=== PATIENT | female | born 1935 | race Caucasian/White ===

== ENCOUNTER 2018-08-21 03:35 | Inpatient (IN) | payer OTHER ==
[2018-08-21] MEDS ORDERED: dilTIAZem HCl 25 MG/5 ML VIAL IV ONE (04:24)
[2018-08-21 04:37] LABS: Absolute Lymphocytes (CBC) 1.6 K/uL (0.7-4.9); Absolute Monocytes 0.8 K/uL (0.1-1.3); Absolute Neutrophil 5.6 K/uL (1.8-8.0); Basophils % 0.6 % (0-1.3); Eosinophils % 1.6 % (0-4.4); Hematocrit 39.7 % (36.0-45.0); Lymphocytes % 19.7 % (15.3-44.8); MPV 9.7 fL (7.6-11.3); RBC Red Blood Cell Count 4.45 M/uL (3.86-4.86)
[2018-08-21 04:42] LABS: Protime INR 1.16
--- NOTE | 2018-08-21 04:54 | ER ---
Nurse's Notes [facility] Name: Svetlana Patel Age: 82 yrs Sex: Female : 1935 Arrival Date: 08/21/2018 Time: 03:36 Bed 6 Private MD: Sridhar Alvarez R Diagnosis: Atrial fibrillation and flutter;Paroxysmal atrial fibrillation Presentation: 08/21 03:40 Presenting complaint: Patient states: Chest pain radiating to left arm with cc3 palpitations since Wednesday. Transition of care: patient was not received from another setting of care. Onset of symptoms was August 16, 2018. Risk Assessment: Do you want to hurt yourself or someone else? Patient reports no desire to harm self or others. Initial Sepsis Screen: Does the patient meet any 2 criteria? No. Patient's initial sepsis screen is negative. Does the patient have a suspected source of infection? No. Patient's initial sepsis screen is negative. Care prior to arrival: None. 03:40 Method Of Arrival: Wheelchair cc3 03:40 Acuity: LUCIEN 3 cc3 Triage Assessment: 03:40 General: Appears in no apparent distress. uncomfortable, Behavior is calm, cooperative, cc3 appropriate for age. Pain: Complains of pain in chest. Pain: Pain radiates to left arm. EENT: No signs and/or symptoms were reported regarding the EENT system. Neuro: Level of Consciousness is awake, alert, obeys commands, Oriented to person, place, time, situation, Appropriate for age. Cardiovascular: Reports chest pain, since Wednesday Patient's skin is warm and dry. Respiratory: Airway is patent Respiratory effort is even, unlabored, Respiratory pattern is regular, symmetrical. GI: Abdomen is round non-distended. : No signs and/or symptoms were reported regarding the genitourinary system. Derm: No signs and/or symptoms reported regarding the dermatologic system. Musculoskeletal: Circulation, motion, and sensation intact. Range of motion: intact in all extremities. Historical: - Allergies: 03:40 Multaq; cc3 03:40 Amiodarone; cc3 - Home Meds: 03:40 atorvastatin 40 mg Oral tab 1 tab once daily [Active]; Eliquis 2.5 mg Oral tab 1 tab 2 cc3 times per day [Active]; furosemide 20 mg Oral tab 1 tab 2 times per day [Active]; magnesium oxide 400 mg Oral cap daily [Active]; metoprolol tartrate 25 mg Oral tab 1 tab once daily [Active]; pantoprazole 40 mg Oral TbEC 1 tab once daily [Active]; potassium chloride 20 mEq Oral TbER 1 tab once daily [Active]; 03:40 sotalol 80 mg Oral tab 1 tab 2 times per day [Active]; preservision eye vitamin cc3 [Active]; areds 2 2 a day [Active]; all day allergy 1 a day [Active]; - PMHx: 03:40 Atrial Fib; Hyperlipidemia; Hypertension; cc3 - PSHx: 03:40 triple heart bypass; herniated disc; cc3 - Immunization history:: Adult Immunizations up to date. - Social history:: Smoking status: Patient/guardian denies using tobacco, never smoked. - Ebola Screening: : No symptoms or risks identified at this time. Screenin:40 Abuse screen: Denies threats or abuse. Denies injuries from another. Nutritional cc3 screening: No deficits noted. Tuberculosis screening: No symptoms or risk factors identified. Fall Risk Ambulatory Aid- None/Bed Rest/Nurse Assist (0 pts). Gait- Weak (10 pts.). Mental Status- Oriented to own ability (0 pts). Assessment: 03:40 Pain: Quality of pain is described as aching, Pain began Wednesday. cc3 04:15 Reassessment: Patient appears in no apparent distress at this time. Patient and/or cc3 family updated on plan of care and expected duration. Pain level reassessed. Patient is alert, oriented x 3, equal unlabored respirations, skin warm/dry/pink. 04:39 Reassessment: Repeat ECG done and reviewed by Dr. Cabello. cc3 05:15 Reassessment: Patient appears in no apparent distress at this time. Patient and/or cc3 family updated on plan of care and expected duration. Pain level reassessed. Patient is alert, oriented x 3, equal unlabored respirations, skin warm/dry/pink. Dr. Lance came and assessed the patient bedside and ordered for Lasix 40 mg IV stat in [facility] and carried out. 06:00 Reassessment: Patient appears in no apparent distress at this time. Patient and/or cc3 family updated on plan of care and expected duration. Pain level reassessed. Patient is alert, oriented x 3, equal unlabored respirations, skin warm/dry/pink. 07:20 Reassessment: Patient appears in no apparent distress at this time. No changes from sv previously documented assessment. Patient and/or family updated on plan of care and expected duration. Pain level reassessed. Patient is alert, oriented x 3, equal unlabored respirations, skin warm/dry/pink. 07:52 Reassessment: Patient appears in no apparent distress at this time. No changes from sv previously documented assessment. Patient and/or family updated on plan of care and expected duration. Pain level reassessed. Patient is alert, oriented x 3, equal unlabored respirations, skin warm/dry/pink. Vital Signs: 03:40 BP 128 / 60; Pulse 126; Resp 24 S; Temp 97.6(O); Pulse Ox 98% on R/A; Weight 52.16 kg cc3 (R); Height 5 ft. (152.40 cm) (R); 04:00 BP 112 / 84; Pulse 131; Resp 20 S; Pulse Ox 97% on 2 lpm NC; cc3 04:40 BP 127 / 72; Pulse 110; Resp 22 S; Pulse Ox 99% on 2 lpm NC; cc3 05:00 BP 134 / 77; Pulse 108; Resp 24 S; Pulse Ox 99% on 2 lpm NC; cc3 05:15 BP 132 / 90; Pulse 119; Resp 24 S; Pulse Ox 99% on 2 lpm NC; cc3 06:00 BP 139 / 68; Pulse 130; Resp 23 S; Pulse Ox 99% on 2 lpm NC; cc3 07:00 BP 120 / 75; Pulse 115; Resp 21; Pulse Ox 98% ; sv 07:52 BP 117 / 67; Pulse 112; Resp 20; Pulse Ox 98% on R/A; sv 03:40 Body Mass Index 22.46 (52.16 kg, 152.40 cm) cc3 ED Course: 03:36 Patient arrived in ED. ds1 03:36 Sridhar Alvarez MD is Private Physician. ds1 03:38 Heidi Dozeir is Primary Nurse. cc3 03:39 Arthur Cabello MD is Attending Physician. tw4 03:40 Patient maintains SpO2 saturation greater than 95% on room air. cc3 03:40 Arm band placed on right wrist. cc3 03:40 Patient has correct armband on for positive identification. Placed in gown. Bed in low cc3 position. Call light in reach. Side rails up X2. site monitor on. Pulse ox on. NIBP on. 03:56 Triage completed. cc3 04:05 Inserted saline lock: 20 gauge in right antecubital area, using aseptic technique. cc3 Blood collected. 04:53 Ritu Lance MD is Hospitalizing Provider. tw4 06:00 Report given to VIVIENNE Talley. cc3 07:13 Hospitalizing Provider role handed off by Ritu Lance MD tw4 07:13 Sridhar Alvarez MD is Hospitalizing Provider. tw4 07:31 Sharon Suresh RN is Primary Nurse. sv 07:52 No provider procedures requiring assistance completed. Patient admitted, IV remains in sv place. intact. Administered Medications: 04:20 Drug: Cardizem 10 mg Route: IVP; Site: right antecubital; cc3 04:39 Follow up: Response: No adverse reaction; Cardiac rhythm changed cc3 06:28 Drug: Cardizem 10 mg Route: IVP; Site: right antecubital; aa1 06:40 Follow up: Response: No adverse reaction cc3 Outcome: 04:54 Decision to Hospitalize by Provider. tw4 07:52 Admitted to ICU accompanied by nurse, accompanied by tech, family with patient, via sv stretcher, room 4, on monitor, with chart, Report called to Caity PALAFOX 07:52 Condition: stable 07:52 Instructed on the need for admit. 08:48 Patient left the ED. sv Signatures: Sharon Suresh RN RN Quin hKan RN RN aa1 Carlie Hooker Terrence, MD MD tw4 Heidi Dozier cc3 Corrections: (The following items were deleted from the chart) 04:57 04:05 Cardizem 10 mg IVP in right antecubital cc3 cc3 06:16 05:15 Reassessment: Patient appears in no apparent distress at this time. Patient cc3 and/or family updated on plan of care and expected duration. Pain level reassessed. Patient is alert, oriented x 3, equal unlabored respirations, skin warm/dry/pink. Dr. Lance came and assessed the patient bedside and ordered for Lasix 40 mg IV in [facility] and carried out. cc3
--- NOTE | 2018-08-21 04:55 | EDPHYS ---
Physician Documentation [facility] Name: Svetlana Patel Age: 82 yrs Sex: Female : 1935 Arrival Date: 08/21/2018 Time: 03:36 Bed 6 Private MD: Sridhar Alvarez R ED Physician Arthur Cabello HPI: 08/21 04:13 This 82 yrs old Female presents to ER via Wheelchair with complaints of Chest tw4 Pain, Arm Pain, Cough. 04:13 The patient or guardian reports chest pain that is located primarily in the anterior tw4 chest wall. Onset: last week. The pain does not radiate. Associated signs and symptoms: The patient has no apparent associated signs or symptoms. The chest pain is described as dull. Duration: The patient or guardian reports multiple episodes. Modifying factors: The symptoms are alleviated by nothing. the symptoms are aggravated by nothing. Severity of pain: At its worst the pain was mild in the emergency department the pain is unchanged. Historical: - Allergies: 03:40 Multaq; cc3 03:40 Amiodarone; cc3 - Home Meds: 03:40 atorvastatin 40 mg Oral tab 1 tab once daily [Active]; Eliquis 2.5 mg Oral tab 1 tab 2 cc3 times per day [Active]; furosemide 20 mg Oral tab 1 tab 2 times per day [Active]; magnesium oxide 400 mg Oral cap daily [Active]; metoprolol tartrate 25 mg Oral tab 1 tab once daily [Active]; pantoprazole 40 mg Oral TbEC 1 tab once daily [Active]; potassium chloride 20 mEq Oral TbER 1 tab once daily [Active]; 03:40 sotalol 80 mg Oral tab 1 tab 2 times per day [Active]; preservision eye vitamin cc3 [Active]; areds 2 2 a day [Active]; all day allergy 1 a day [Active]; - PMHx: 03:40 Atrial Fib; Hyperlipidemia; Hypertension; cc3 - PSHx: 03:40 triple heart bypass; herniated disc; cc3 - Immunization history:: Adult Immunizations up to date. - Social history:: Smoking status: Patient/guardian denies using tobacco, never smoked. - Ebola Screening: : No symptoms or risks identified at this time. ROS: 04:13 Constitutional: Negative for fever, chills, and weight loss, Eyes: Negative for injury, tw4 pain, redness, and discharge, Respiratory: Negative for shortness of breath, cough, wheezing, and pleuritic chest pain, Abdomen/GI: Negative for abdominal pain, nausea, vomiting, diarrhea, and constipation, Back: Negative for injury and pain, MS/Extremity: Negative for injury and deformity, Skin: Negative for injury, rash, and discoloration. 04:13 Cardiovascular: Positive for chest pain, palpitations, Negative for edema, orthopnea. Exam: 04:13 Constitutional: This is a well developed, well nourished patient who is awake, alert, tw4 and in no acute distress. Head/Face: Normocephalic, atraumatic. Chest/axilla: Normal chest wall appearance and motion. Nontender with no deformity. No lesions are appreciated. Respiratory: Lungs have equal breath sounds bilaterally, clear to auscultation and percussion. No rales, rhonchi or wheezes noted. No increased work of breathing, no retractions or nasal flaring. Abdomen/GI: Soft, non-tender, with normal bowel sounds. No distension or tympany. No guarding or rebound. No evidence of tenderness throughout. Back: No spinal tenderness. No costovertebral tenderness. Full range of motion. Skin: Warm, dry with normal turgor. Normal color with no rashes, no lesions, and no evidence of cellulitis. MS/ Extremity: Pulses equal, no cyanosis. Neurovascular intact. Full, normal range of motion. Neuro: Awake and alert, GCS 15, oriented to person, place, time, and situation. Cranial nerves II-XII grossly intact. Motor strength 5/5 in all extremities. Sensory grossly intact. Cerebellar exam normal. Normal gait. 04:13 Cardiovascular: Rate: tachycardic, actual rate is 124 bpm, Rhythm: irregularly irregular, Pulses: no pulse deficits are appreciated, Heart sounds: Vital Signs: 03:40 BP 128 / 60; Pulse 126; Resp 24 S; Temp 97.6(O); Pulse Ox 98% on R/A; Weight 52.16 kg cc3 (R); Height 5 ft. (152.40 cm) (R); 04:00 BP 112 / 84; Pulse 131; Resp 20 S; Pulse Ox 97% on 2 lpm NC; cc3 04:40 BP 127 / 72; Pulse 110; Resp 22 S; Pulse Ox 99% on 2 lpm NC; cc3 05:00 BP 134 / 77; Pulse 108; Resp 24 S; Pulse Ox 99% on 2 lpm NC; cc3 05:15 BP 132 / 90; Pulse 119; Resp 24 S; Pulse Ox 99% on 2 lpm NC; cc3 06:00 BP 139 / 68; Pulse 130; Resp 23 S; Pulse Ox 99% on 2 lpm NC; cc3 07:00 BP 120 / 75; Pulse 115; Resp 21; Pulse Ox 98% ; sv 07:52 BP 117 / 67; Pulse 112; Resp 20; Pulse Ox 98% on R/A; sv 03:40 Body Mass Index 22.46 (52.16 kg, 152.40 cm) cc3 MDM: 03:39 Patient medically screened. tw4 05:18 Differential diagnosis: acute myocardial infarction, acute pericarditis, pulmonary tw4 embolus, thoracic aortic disection. Data reviewed: vital signs, nurses notes. Data interpreted: Pulse oximetry: Interpretation: normal. Counseling: I had a detailed discussion with the patient and/or guardian regarding: the historical points, exam findings, and any diagnostic results supporting the discharge/admit diagnosis, radiology results, the need for further work-up and treatment in the hospital. 05:25 Physician consultation: Sridhar Alvarez MD was contacted at 05:28, regarding admission, and 4 will see patient in inpatient room, would like consultation with Dr. Dr Breaux. 08/21 03:50 Order name: Basic Metabolic Panel 08/21 03:50 Order name: CBC with Diff 08/21 03:50 Order name: LFT's 08/21 03:50 Order name: Magnesium 08/21 03:50 Order name: NT PRO-BNP 08/21 03:50 Order name: PT-INR 08/21 03:50 Order name: Troponin (emerg Dept Use Only) 08/21 03:50 Order name: XRAY Chest (1 view) 08/21 03:50 Order name: EKG; Complete Time: 03:51 08/21 03:50 Order name: Cardiac monitoring; Complete Time: 03:53 08/21 03:50 Order name: EKG - Nurse/Tech; Complete Time: 03:53 tw4 08/21 03:51 Order name: Basic Metabolic Panel; Complete Time: 06:20 EDGA 08/21 03:50 Order name: IV Saline Lock; Complete Time: 04:09 tw4 08/21 03:50 Order name: Labs collected and sent; Complete Time: 04:29 tw4 08/21 03:50 Order name: O2 Per Protocol; Complete Time: 03:53 tw4 08/21 03:50 Order name: O2 Sat Monitoring; Complete Time: :53 tw4 EC:13 Rate is 134 beats/min. Rhythm is irregularly irregular, A fib. QRS [place] is Normal. NE tw4 interval is normal. QRS interval is normal. QT interval is normal. No Q waves. T waves are Normal. No ST changes noted. Clinical impression: Atrial Fibrillation. Interpreted by me. Reviewed by me. Administered Medications: 04:20 Drug: Cardizem 10 mg Route: IVP; Site: right antecubital; cc3 04:39 Follow up: Response: No adverse reaction; Cardiac rhythm changed cc3 06:28 Drug: Cardizem 10 mg Route: IVP; Site: right antecubital; aa1 06:40 Follow up: Response: No adverse reaction cc3 Disposition: 08/21/18 04:54 Hospitalization ordered by Sridhar Alvarez for Inpatient Admission. Preliminary diagnosis are Atrial fibrillation and flutter, Paroxysmal atrial fibrillation. - Bed requested for Intensive Care Unit. - Status is Inpatient Admission. sv - Condition is Stable. - Problem is new. - Symptoms have improved. UTI on Admission? No Signatures: Dispatcher [employer] [facility] Sharon Suresh RN RN Quin Khan RN RN aa1 Carolina Pittman RN RN bb Arthur Cabello MD MD tw4 Heidi Dozier cc3 Corrections: (The following items were deleted from the chart) 05:30 05:18 Physician consultation: Ritu Lance MD regarding admission, to the ICU, tw4 patient's condition, need to come to ED to see patient, and will see patient in ED, in inpatient room, tw4 07:13 04:54 Hospitalization Ordered by Ritu Lance MD for Inpatient Admission. Preliminary tw4 diagnosis is Atrial fibrillation and flutter; Paroxysmal atrial fibrillation. Bed requested for Telemetry/MedSurg (Inpatient). Status is Inpatient Admission. Condition is Stable. Problem is new. Symptoms have improved. UTI on Admission? No. tw4 07:14 07:13 08/21/2018 04:54 Hospitalization Ordered by Sridhar Alvarez MD for Inpatient bb Admission. Preliminary diagnosis is Atrial fibrillation and flutter; Paroxysmal atrial fibrillation. Bed requested for Intensive Care Unit. Status is Inpatient Admission. Condition is Stable. Problem is new. Symptoms have improved. UTI on Admission? No. tw4 08:48 07:14 08/21/2018 04:54 Hospitalization Ordered by Sridhar Alvarez MD for Inpatient sv Admission. Preliminary diagnosis is Atrial fibrillation and flutter; Paroxysmal atrial fibrillation. Bed requested for Intensive Care Unit. Status is Inpatient Admission. Condition is Stable. Problem is new. Symptoms have improved. UTI on Admission? No. bb
[2018-08-21 05:05] LABS: Albumin 3.1 g/dL (3.4-5.0); Bilirubin Direct 0.1 mg/dL (0-0.2); Bilirubin Total 0.5 mg/dL (0.2-1.0); Magnesium 1.8 mg/dL (1.8-2.4); Protein, Total 6.8 g/dL (6.4-8.2); Troponin (Emerg Dept Use Only) 0.02 ng/mL (0.0-0.045)
[2018-08-21] MEDS ORDERED: FUROSEMIDE 40 MG/4 ML VIAL IV ONE (05:13)
[2018-08-21] MEDS ORDERED: IPRATROPIUM BROM 0.5MG/2.5ML NEB PRN (05:57)
[2018-08-21] MEDS ORDERED: ALBUTEROL 2.5 MG/3 ML NEB SOL NEB PRN (05:57)
[2018-08-21] MEDS ORDERED: ACETAMINOPHEN 500 MG TAB PO PRN (05:57)
[2018-08-21] MEDS ORDERED: FUROSEMIDE 20 MG/ 2ML VIAL IV SCH (09:00)
--- NOTE | 2018-08-21 10:09 | RAD REPORT ---
EXAM DESCRIPTION: RAD - Chest Single View - 08/21/2018 8:19 am CLINICAL HISTORY: CHEST PAIN Chest pain. COMPARISON: Chest Single View dated 07/19/2016; CHEST SINGLE VIEW dated 07/08/2015 FINDINGS: Portable technique limits examination quality. The lungs are mildly emphysematous but grossly clear. Changes of a prior CABG are noted. No displaced fractures. IMPRESSION: No acute intrathoracic process suspected.
[2018-08-21 11:06] VITALS: BMI 22.4
[2018-08-21] MEDS: APIXABAN 2.5 MG TABLET PO SCH ×2 (11:39→21:14)
[2018-08-21] MEDS ORDERED: SOTALOL HCL 80 MG TAB PO ONE (12:00)
--- NOTE | 2018-08-21 15:03 | CON ---
History Of Present Illness: Mrs. Patel is 82. For more than a week, she has been having intermitte nt spells of chest pain and heart racing. She did not seek any medical attention until she came to [facility] emergency room yesterday. She was in sinus rhythm when she first came in. Now she is in atrial f ib and has reproduced her spell. As an outpatient, she had a nuclear stress test that did not show i schemia. Three years ago in July 2015, she underwent cardiac catheterization and then had perez ry bypass surgery, that was by Dr. Sabillon in [place]. She has been in atrial fib intermittently since [facility], but not nearly as much. She has been on Eliquis 2.5 b.i.d. and Betapace 80 b.i.d. without havin g that very much atrial fibrillation until the last few weeks. Medications: Outpatient medications have been atorvastatin, cetirizine, apixaban, sotalol. Allergies: SHE HAS DRUG INTOLERANCE TO AMIODARONE AND TO DRONEDARONE OR MULTAQ. Physical Examination: General: She is alert, oriented, pleasant, 5 feet tall, 115 pounds. HEENT: Normal. Lungs: Clear. Cardiac: Within normal limits except for that it is irregularly irregular and going about 110. Sinc e she has been here in the hospital, she has missed at least 1 dose of Betapace, it simply was not or dered by the admitting physician. The rest of her physical exam was normal. Assessment/plan: I think we ought to try a higher dose of Betapace. If this fails to control her at rial fibrillation, she will need an electrophysiology evaluation and most likely an ablation, although dofetilide is a possibility. ARIEL/ELLEN Voice ID: [id number] Report ID: [id number]
[2018-08-21 16:43] LABS: Urine Appearance CLEAR; Urine Bilirubin NEGATIVE (NEG); Urine Blood 2+ (NEG); Urine Color YELLOW; Urine Glucose NEGATIVE (NEG); Urine Protein 1+ (NEG); Urine Specific Gravity <=1.005 (1.005-1.030); Urine Urobilinogen 0.2 mg/dL (0.2-1.0); Urine pH 6.5 (5.0-7.0)
[2018-08-21 17:00] LABS: Urine Microscopic Reflex ORDER UMIC
[2018-08-21 17:02] LABS: Urine Bacteria <20 /HPF (<20)
[2018-08-21 17:03] LABS: Urine Culture Reflex Order NOT NEEDED
--- NOTE | 2018-08-21 17:03 | HP ---
Date of Admission: 08/21/2018 Chief Complaint: 1.Chest pain radiating to the left arm. 2.Palpitations. History Of Present Illness: An 82-year-old female, who is known to have history of coronary artery d iscarlose, having had coronary artery bypass surgery, was being treated as an outpatient for atrial fibr illation. The patient, however, developed chest pain and palpitations. She was brought to the ER. She had an increased ventricular response from atrial fibrillation. The patient is admitted. Past Medical History: Positive for atrial fibrillation, hypertension, coronary artery disease, hyper lipidemia. Past Surgical History: Positive for triple bypass surgery. Personal History: Nonsmoker. Home Medicines: Please refer to the chart. Review of Systems: No fever, chills, rigors. Physical Examination: General: Revealed an 82-year-old female, very alert for her age. HEENT: Negative. Neck: Supple. JVD negative. Chest: Clear. Heart: Irregularity noted. Tachycardia present. Abdomen: Soft. Extremities: No edema. Laboratory Data: Done in the emergency room showed normal white count. Chem profile; BUN 19. Tropo milyl normal. BNP 6668. Assessment: 1.Atrial fibrillation with rapid ventricular response. 2.Status post coronary artery bypass surgery. 3.Hypertension. 4.Hyperlipidemia. Plan: The patient is being seen by Cardiology Service. The patient is already on anticoagulation, w hich will be continued. MARY/ELLEN Voice ID: [id number]
[2018-08-21] MEDS: SOTALOL HCL 80 MG TAB PO SCH (17:52)
--- NOTE | 2018-08-21 20:18 | EKG ---
Test Date: 2018-08-21 Test Time: 04:39:12 Interior Systems Carpenter: YU MEASUREMENT RESULTS: Intervals: Rate: 111 MD: QRSD: 68 QT: 336 QTc: 456 [place]: P: MD: QRS: -25 T: -2 INTERPRETIVE STATEMENTS: Atrial fibrillation with rapid ventricular response Inferior infarct, age undetermined Abnormal ECG Compared to ECG 08/21/2018 03:46:22 Myocardial infarct finding now present Atrial flutter no longer present ST (T wave) deviation no longer present Electronically Signed On 08-21-18 20:17:56 CDT by Jaylon Breaux
--- NOTE | 2018-08-21 20:19 | EKG ---
Test Date: 2018-08-21 Test Time: 03:46:22 Coach Mechanic: YU MEASUREMENT RESULTS: Intervals: Rate: 134 ND: QRSD: 66 QT: 276 QTc: 412 [place]: P: ND: QRS: -3 T: 73 INTERPRETIVE STATEMENTS: Atrial flutter with variable AV block Nonspecific ST abnormality Abnormal ECG Compared to ECG 07/21/2016 13:18:52 ST (T wave) deviation now present Sinus bradycardia no longer present Myocardial infarct finding no longer present Electronically Signed On 08-21-18 20:18:04 CDT by Jaylon Breaux
[2018-08-21] MEDS ORDERED: ATORVASTATIN 40 MG TAB PO SCH (21:00)
[2018-08-21] MEDS: ATORVASTATIN 40 MG TAB PO SCH (21:14)
[2018-08-22 05:19] LABS: Absolute Lymphocytes (CBC) 1.7 K/uL (0.7-4.9); Absolute Neutrophil 4.8 K/uL (1.8-8.0); Eosinophils % 1.6 % (0-4.4); Hematocrit 36.6 % (36.0-45.0); Lymphocytes % 22.7 % (15.3-44.8); MPV 9.2 fL (7.6-11.3); Monocytes % 12.5 % (3.3-12.3)
[2018-08-22 05:49] LABS: Potassium 3.7 mmol/L (3.5-5.1)
[2018-08-22] MEDS: SOTALOL HCL 80 MG TAB PO SCH ×2 (07:00→17:29)
[2018-08-22] MEDS ORDERED: MIDAZOLAM HCL 2 MG/2 ML INJ ONE ×2 (07:28→07:35)
[2018-08-22] MEDS ORDERED: FLUMAZENIL 0.1 MG/ML (5 mL VIAL) IV ONE (07:32)
[2018-08-22] MEDS ORDERED: HOME MED 1 EA UNK (Cetirizine Hcl [Cetirizine Hcl] 10 MG) PO SCH (09:00)
[2018-08-22] MEDS: APIXABAN 2.5 MG TABLET PO SCH ×2 (09:31→21:31)
[2018-08-22] MEDS: CETIRIZINE HCL 5 MG TABLET PO SCH (09:31)
--- NOTE | 2018-08-22 18:16 | OP ---
Surgeon: Jaylon Breaux MD Procedure: The patient had a cardioversion. Indication: Persistent atrial fibrillation. Procedure In Detail: The patient was fasting. She received several doses of Betapace 120 every 12 h ours. She had been on Eliquis 2.5 every 12 hours continuously. Anterior-posterior paddles were appl ied to her chest. She was shocked with a single shock 200 joules. She emerged from this rhythm with multifocal atrial tachycardia, few PVCs, some sinus pauses and finally sinus rhythm. She seems to b e stable. She was sedated with 5 mg of Versed. The shock was 200 joules, synchronized to the QRS as 1 shock. No complications. ARIEL/ELLEN Voice ID: [id number] Report ID: [id number]
[2018-08-22] MEDS: ATORVASTATIN 40 MG TAB PO SCH (21:32)
[2018-08-23] MEDS: SOTALOL HCL 80 MG TAB PO SCH (06:23)
[2018-08-23] MEDS: APIXABAN 2.5 MG TABLET PO SCH (08:33)
[2018-08-23] MEDS: CETIRIZINE HCL 5 MG TABLET PO SCH (08:34)
[2018-08-23 13:09] VITALS: BP 136/58; TEMP 97.7
[2018-08-23 13:10] VITALS: O2SAT 93
== END 2018-08-23 14:46 | disposition home or self-care (01) | DRG 310 ==
LOC: ER 03:35 → ERHOLD 05:22 → 3RD-ICU 08:03 → 4TH 08-22 13:25
PROVIDERS: ADMIT Internal Medicine; ATTEND Internal Medicine
PROC: 5A2204Z Restoration of Cardiac Rhythm, Single (ICD-10-PCS; principal; 2018-08-22)
DX: I48.2 Chronic atrial fibrillation (principal); R07.9 Chest pain, unspecified; R00.2 Palpitations; I25.10 Atherosclerotic heart disease of native coronary artery without angina pectoris; Z95.1 Presence of aortocoronary bypass graft; E78.5 Hyperlipidemia, unspecified
CPT/HCPCS: 36415; 71045; 80048; 80076; 81003; 81015; 83735; 83880; 84484; 85025; 85610; 87086; 87088; 93005; 96374; 99285; J1940; J2250

== ENCOUNTER 2018-10-07 15:00 | Day surgery (SDC) | payer OTHER ==
[2018-10-07 13:12] LABS: Absolute Lymphocytes (CBC) 1.7 K/uL (0.7-4.9); Absolute Monocytes 0.9 K/uL (0.1-1.3); Absolute Neutrophil 5.1 K/uL (1.8-8.0); Basophils % 0.9 % (0-1.3); Eosinophils % 0.2 % (0-4.4); Hematocrit 36.7 % (36.0-45.0); Lymphocytes % 22.1 % (15.3-44.8); MPV 8.8 fL (7.6-11.3); Monocytes % 11.2 % (3.3-12.3); RBC Red Blood Cell Count 4.19 M/uL (3.86-4.86)
[2018-10-07 13:14] LABS: Protime INR 1.33
[2018-10-07 13:25] LABS: Potassium 4.2 mmol/L (3.5-5.1)
[~2018-10-07 15:00] MED LIST: NA CHLORIDE 0.9% 500 ML ONE
--- OUTSIDE RECORDS SUMMARY | 2018-10-07 15:02 | XMS REPORT | Clinical Summary ---
:1935 Author Organization [facility] Address [address] [place] [id number] Care Team Providers Name Role Phone Sridhar Merritt MD Primary Care Provider Allergies No Known Allergies Medications Medication Sig Dispensed Refills Start Date End Date Status atorvastatin Take 40 mg by 0 Active (LIPITOR) 40 MG mouth daily. tablet apixaban (ELIQUIS) Take 2.5 mg 0 Active 2.5 mg tablet by mouth 2 (two) times a day. cetirizine Take 10 mg by 0 Active (ZyrTEC) 10 MG mouth daily. tablet dofetilide Take 1 180 capsule 0 10/05/2018 01/03/2019 Active (TIKOSYN) 250 MCG capsule (250 capsule mcg total) by mouth every 12 (twelve) hours for 90 days. metoprolol Take 25 mg by 0 10/05/2018 Discontinued succinate XL mouth daily. (TOPROL-XL) 25 mg 24 hr tablet Active Problems Problem Noted Date Afib 10/03/2018 Encounters Date Type Specialty Care Team Description 10/03/2018 - Hospital Encounter General Internal Felipe Bryan 10/05/2018 Medicine MD Gómez 10/03/2018 Lab Lab Felipe Bryan Atrial fibrillation, unspecified type (HCC) (Primary Dx); MD Gómez Other skilled nursing (current) drug therapy after 10/06/2017 Social History Tobacco Use Types Packs/Day Years Used Date Never Smoker Smokeless Tobacco: Never Used Alcohol Use Drinks/Week oz/Week Comments No Alcohol Habits Answer Date Recorded How often do you have a drink containing alcohol? Never 10/03/2018 How many drinks containing alcohol do you have on a typical Not asked day when you are drinking? How often do you have six or more drinks on one occasion? Not asked Sex Assigned at Date Recorded Not on file Job Start Date Occupation Industry Not on file Not on file Not on file Travel History Travel Start Travel End No recent travel history available. Last Filed Vital Signs Vital Sign Reading Time Taken Blood Pressure 135/56 10/05/2018 11:53 AM CDT Pulse 54 10/05/2018 11:53 AM CDT Temperature 36.7 C (98 F) 10/05/2018 11:53 AM CDT Respiratory Rate 18 10/05/2018 11:53 AM CDT Oxygen Saturation 95% 10/05/2018 11:53 AM CDT Inhaled Oxygen Concentration - - Weight 55.4 kg (122 lb 2.2 oz) 10/05/2018 5:05 AM CDT Height - - Body Mass Index - - Plan of Treatment Health Maintenance Due Date Last Done Comments SHINGLES VACCINES (#1) 12/31/1983 65+ PNEUMOCOCCAL VACCINE (1 of 2 - PCV13) 1998 PNEUMOCOCCAL POLYSACCHARIDE VACCINE AGE 65 AND OVER 1998 INFLUENZA VACCINE 12/29/2018 Procedures Procedure Name Priority Date/Time Associated Comments Diagnosis ESTIMATED GFR Routine 10/05/2018 5:17 Results for this AM CDT procedure are in the results section. MAGNESIUM LEVEL Routine 10/05/2018 5:17 Results for this AM CDT procedure are in the results section. BASIC METABOLIC PANEL Routine 10/05/2018 5:17 Results for this AM CDT procedure are in the results section. ECG 12-LEAD Routine 10/05/2018 12:01 Results for this AM CDT procedure are in the results section. ESTIMATED GFR Routine 10/04/2018 6:19 Results for this AM CDT procedure are in the results section. MAGNESIUM LEVEL Routine 10/04/2018 6:19 Results for this AM CDT procedure are in the results section. BASIC METABOLIC PANEL Routine 10/04/2018 6:19 Results for this AM CDT procedure are in the results section. ECG 12-LEAD STAT 10/04/2018 1:18 Results for this AM CDT procedure are in the results section. POC GLUCOSE Routine 10/04/2018 12:41 Results for this AM CDT procedure are in the results section. ECG 12-LEAD Routine 10/03/2018 2:04 Results for this PM CDT procedure are in the results section. ECG 12-LEAD STAT 10/03/2018 9:18 Results for this AM CDT procedure are in the results section. ESTIMATED GFR Routine 10/03/2018 6:13 Results for this AM CDT procedure are in the results section. MAGNESIUM LEVEL Routine 10/03/2018 6:13 Atrial Results for this AM CDT fibrillation, procedure are in unspecified type the results (HCC) section. Other skilled nursing (current) drug therapy COMPREHENSIVE METABOLIC Routine 10/03/2018 6:13 Atrial Results for this PANEL AM CDT fibrillation, procedure are in unspecified type the results (HCC) section. 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 Other skilled nursing (current) drug therapy HC COMPLETE BLD COUNT Routine 10/03/2018 6:13 Atrial Results for this W/AUTO DIFF AM CDT fibrillation, procedure are in unspecified type the results (HCC) section. Other skilled nursing (current) drug therapy after 10/06/2017 Results Estimated GFR (10/05/2018 5:17 AM CDT)Only the most recent of3 resultswithin the time period is included. Estimated GFR 75 mL/min/1.73 m2 [facility] Comment: HOSPITAL CatergoryUnitsInterpretation G1 >=90 Normal or high G2 60-89Mildly decreased P2h90-59Zecrhu to moderately decreased C2y07-64Ngjqdflzch to severely decreased G4 15-29Severely decreased G5 <15Kidney failure The eGFR was calculated using the Chronic Kidney Disease Epidemiology Collaboration (CKD-EPI) equation. Interpretation is based on recommendations of the National Kidney Foundation-Kidney Disease Outcomes Quality Initiative (NKF-KDOQI) published in 2014. Specimen Plasma specimen Performing Organization Address City/State/Zipcode Phone Number [facility] DEPARTMENT OF PATHOLOGY AND [address] [place] [address] [facility] [place] [id number] [place] [address] Magnesium level (10/05/2018 5:17 AM CDT)Only the most recent of3 resultswithin the time period is included. Magnesium 1.8 1.6 - 2.4 mg/dL [facility] Specimen Plasma specimen Performing Organization Address City/[facility] Phone Number [facility] DEPARTMENT OF PATHOLOGY AND [address] [place] [id number] [place] [phone] Basic metabolic panel (10/05/2018 5:17 AM CDT)Only the most recent of2 resultswithin the time period is included. Sodium 142 135 - 148 mEq/L [facility] Potassium 4.0 3.5 - 5.0 mEq/L [facility] Chloride 102 98 - 112 mEq/L [facility] CO2 28 24 - 31 mEq/L [facility] Anion gap 12@ANIO 7 - 15 mEq/L [facility] BUN 19 8 - 23 mg/dL [facility] Creatinine 0.73 0.50 - 0.90 mg/dL [facility] Glucose 103 (H) 65 - 99 mg/dL [facility] Calcium 8.5 (L) 8.8 - 10.2 mg/dL [facility] Specimen Plasma specimen Performing Organization Address City/[facility] Phone Number [facility] DEPARTMENT OF PATHOLOGY AND [address] [place] [id number] ECG 12 lead (10/05/2018 12:01 AM CDT)Only the most recent of4 resultswithin the time period is included. Ventricular rate 59 [facility]USE Atrial rate 59 [facility] MUSE OR interval 166 [facility] MUSE QRSD interval 74 [facility] QT interval 494 [facility] QTC interval 489 [facility] MUSE P axis 1 66 [facility]USE QRS axis 1 30 [facility] MUSE T wave axis 61 [facility] MUSE EKG impression Sinus bradycardia with occasional and consecutive premature ventricular complexes-Abnormal ECG-In automated comparison with ECG of 2018 14:20,-premature atrial complexes are no longer present-Marcelle [facility] MUSE ctronically Signed By Monico Nogueira ([id number]) on 10/05/2018 8:12:40 AM Narrative Performed At Performing Organization Address City/[facility]/Zipcode Phone Number [facility] MUSE [address] [place] [address] POC glucose (10/04/2018 12:41 AM CDT) POC glucose 131 (H) 65 - 99 mg/dL [facility] Comment: [facility] Notified RN Meter ID: [id number] Shoe Salesperson: Villegas Performing Organization Address City/State/[facility] Phone Number [facility] DEPARTMENT OF PATHOLOGY AND [address] [place] [address] Partial thromboplastin time, activated (10/03/2018 6:13 AM CDT) PTT 29.8 23.0 - 36.0 sec [facility] Comment: PTT therapeutic range for unfractionated heparin is 61.0-112.0 seconds which corresponds to Anti-Xa 0.3-0.7 U/ml. Specimen Blood Performing Organization Address City/[facility] Phone Number [facility] DEPARTMENT OF PATHOLOGY AND [address] [place] [phone] Prothrombin time with INR (10/03/2018 6:13 AM CDT) Prothrombin time 15.2 (H) 11.5 - 14.5 sec [facility] INR 1.2 [facility] Comment: HOSPITAL The International Normalized Ratio (INR) is a therapeutic monitoring tool for patients who are stable on oral anticoagulant therapy. An INR of 2.0-3.0 is suggested for deep vein thrombosis/pulmonary embolism. Specimen Blood Performing Organization Address City/[facility]y Phone Number [facility] DEPARTMENT OF PATHOLOGY AND [address] [place] [address] CBC with platelet and differential (10/03/2018 6:13 AM CDT) WBC 7.53 4.50 - 11.00 k/uL [facility] RBC 4.30 4.20 - 5.50 m/uL [facility] HGB 12.3 12.0 - 16.0 g/dL [facility] HCT 40.0 37.0 - 47.0 % [facility] MCV 93.0 82.0 - 100.0 fL [facility] MCH 28.6 27.0 - 34.0 pg [facility] MCHC 30.8 (L) 31.0 - 37.0 g/dL [facility] RDW - SD 49.6 37.0 - 55.0 fL [facility] MPV 11.0 8.8 - 13.2 fL [facility] Platelet count 214 150 - 400 k/uL [facility] Nucleated RBC 0.00 /100 WBC [facility] Neutrophils 68.1 39.0 - 69.0 % [facility] Lymphocytes 18.3 (L) 25.0 - 45.0 % [facility] Monocytes 12.0 (H) 0.0 - 10.0 % [facility] Eosinophils 0.9 0.0 - 5.0 % [facility] Basophils 0.4 0.0 - 1.0 % [facility] Immature granulocytes 0.3Comment: "Immature 0.0 - 1.0 % [facility]" [facility] (promyelocytes, myelocytes, metamyelocytes) Specimen Blood Performing Organization Address City/State/Zipcode Phone Number [facility] DEPARTMENT OF PATHOLOGY AND [address] [place] [address] GENOMIC MEDICINE [address] [address] Comprehensive metabolic panel (10/03/2018 6:13 AM CDT) Sodium 139 135 - 148 mEq/L [facility] Potassium 4.0 3.5 - 5.0 mEq/L [facility] Chloride 101 98 - 112 mEq/L [facility] CO2 27 24 - 31 mEq/L [facility] Anion gap 11@ANIO 7 - 15 mEq/L [facility] BUN 22 8 - 23 mg/dL [facility] Creatinine 0.82 0.50 - 0.90 mg/dL [facility] Glucose 123 (H) 65 - 99 mg/dL [facility] Calcium 9.0 8.8 - 10.2 mg/dL [facility] Protein 6.3 6.3 - 8.3 g/dL [facility] Comment: HOSPITAL 4.6-7.0 g/dL 1 week 4.4-7.6 g/dL 7 months-1year5.1-7.3 g/dL 1-2 years5.6-7.5 g/dL >3 years6.0-8.0 g/dL 18-150 6.3-8.3 g/dL Albumin 3.0 (L) 3.5 - 5.0 g/dL [facility] A/G ratio 0.9 0.7 - 3.8 [facility] Alkaline phosphatase 101 35 - 104 U/L [facility] AST 33 10 - 35 U/L [facility] ALT 34 5 - 50 U/L [facility] Total bilirubin 0.4 0.0 - 1.2 mg/dL [facility] Specimen Plasma specimen Performing Organization Address City/State/Zipcode Phone Number [facility] DEPARTMENT OF PATHOLOGY AND [address] [place] [address] GENOMIC MEDICINE [address] [address] after 10/06/2017 Insurance Payer Benefit Plan / Group Subscriber ID Type Phone Address [employer]ARE [employer] MED[employer]ARE PPO/PFFS/ERS MCR xxxxxxxxx PPO ([id number] [place] [address] Advance Directives Patient has advance care planning documents on file. For more information, please contact:[address] [address]
[2018-10-07] MEDS ORDERED: ATROPINE SULF 1 MG/10 ML SYR IV ONE (15:07)
[2018-10-07] MEDS ORDERED: MIDAZOLAM HCL 5 MG/5 ML INJ ONE (15:07)
[2018-10-07 16:39] VITALS: BP 161/70; O2SAT 96
[2018-10-07 16:59] VITALS: TEMP 97.2
--- NOTE | 2018-10-08 00:45 | OP ---
Date of Procedure: 10/07/2018 Surgeon: Ash Colon MD Procedure: Direct current cardioversion. Indication: Atrial fibrillation. Details: Ms. Patel is an 82-year-old white woman who has failed multiple attempts at cardioverting her heart with medication. She has tried beta blockers, Bystolic, Betapace. She had tried Multaq. Finally she is on Tikosyn, converted to normal rhythm for a day. After 3 days of in-hospital initiat ion, went back into atrial fibrillation. Came to see me at the office today and was sent to the [facility] for a cardioversion. She received 3 mg of Versed for IV sedation. She received one shock of 20 0 joules. She converted to sinus rhythm with multiple PVCs, PACs, occasional couplets but sinus rhyt hm nevertheless. Complications: None. Blood Loss: None. Total Conscious Sedation: 30 minutes. Final Diagnosis: Status post successful atrial fibrillation to sinus rhythm. We will continue Jeffreys yn, continue Eliquis. She will see at the end of September. The case was discussed with he r daughter and with . Operators: Ash Colon M.D. and Dr. Mcclendon Guru. SHARRI/ELLEN Voice ID: [id number] Report ID: [id number]
--- NOTE | 2018-10-08 09:22 | EKG ---
Test Date: 2018-10-07 Test Time: 15:13:20 Electric Motorman: ARIANA MEASUREMENT RESULTS: Intervals: Rate: 100 WA: 152 QRSD: 60 QT: 404 QTc: 521 [place]: P: 98 WA: 152 QRS: -20 T: 27 INTERPRETIVE STATEMENTS: Sinus rhythm with fusion complexes and premature atrial complexes with aberrant conduction Inferior infarct, age undetermined Prolonged QT Abnormal ECG Compared to ECG 08/21/2018 04:39:12 Atrial premature complex(es) now present Fusion complex(es) now present Aberrant conduction of supraventricular beat(s) now present Prolonged QT interval now present Atrial fibrillation no longer present Myocardial infarct finding still present Electronically Signed On 10-08-18 09:21:03 CDT by Ash Colon
== END 2018-10-07 16:50 | disposition home or self-care (01) ==
LOC: CCL 15:00
DX: I48.91 Unspecified atrial fibrillation (principal); I25.10 Atherosclerotic heart disease of native coronary artery without angina pectoris; I10 Essential (primary) hypertension; K21.9 Gastro-esophageal reflux disease without esophagitis; I65.23 Occlusion and stenosis of bilateral carotid arteries; E78.6 Lipoprotein deficiency; Z79.01 Long term (current) use of anticoagulants; Z79.899 Other long term (current) drug therapy; Z95.1 Presence of aortocoronary bypass graft
CPT/HCPCS: 93005; 85025; 80048; 36415; 85610; 85730; 92960; J2250

== ENCOUNTER 2018-11-16 07:36 | Emergency (ER) | payer OTHER ==
--- OUTSIDE RECORDS SUMMARY | 2018-11-16 07:38 | XMS REPORT | Clinical Summary ---
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 Other alf (current) drug therapy COMPREHENSIVE METABOLIC Routine 10/03/2018 6:13 Atrial Results for this PANEL AM CDT fibrillation, procedure are in unspecified type the results (HCC) section. 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 Other alf (current) drug therapy PROTHROMBIN TIME WITH Routine 10/03/2018 6:13 Atrial Results for this INR AM CDT fibrillation, procedure are in unspecified type the results (HCC) section. Other alf (current) drug therapy HC COMPLETE BLD COUNT Routine 10/03/2018 6:13 Atrial Results for this W/AUTO DIFF AM CDT fibrillation, procedure are in unspecified type the results (HCC) section. Other alf (current) drug therapy after 11/15/2017 Results Estimated GFR (10/05/2018 5:17 AM CDT)Only the most recent of3 resultswithin the time period is included. Estimated GFR 75 mL/min/1.73 [facility] Comment: HOSPITAL CatergoryUnitsInterpretation G1 >=90 Normal or high G2 60-89Mildly decreased [id number] to moderately decreased [id number] to severely decreased G4 15-29Severely decreased G5 <15Kidney failure The eGFR was calculated using the Chronic Kidney Disease Epidemiology Collaboration (CKD-EPI) equation. Interpretation is based on recommendations of the National Kidney Foundation-Kidney Disease Outcomes Quality Initiative (NKF-KDOQI) published in 2014. Specimen Plasma specimen Performing Organization Address City/State/Zipcode Phone Number [facility] DEPARTMENT OF PATHOLOGY AND [address] [place] [address] [address] [address] Magnesium level (10/05/2018 5:17 AM CDT)Only the most recent of3 resultswithin the time period is included. Magnesium 1.8 1.6 - 2.4 mg/dL [facility] Specimen Plasma specimen Performing Organization Address City/State/Zipcode Phone Number [facility] DEPARTMENT OF PATHOLOGY AND [address] [place] [phone] [address] Basic metabolic panel (10/05/2018 5:17 AM CDT)Only the most recent of2 resultswithin the time period is included. [facility] Sodium 142 135 - 148 mEq/L [facility] Potassium 4.0 3.5 - 5.0 mEq/L [facility] Chloride 102 98 - 112 mEq/L [facility] CO2 28 24 - 31 mEq/L [facility] Anion gap 12@ANIO 7 - 15 mEq/L [facility] BUN 19 8 - 23 mg/dL [facility] Creatinine 0.73 0.50 - 0.90 mg/dL [facility] Glucose 103 (H) 65 - 99 mg/dL [facility] Calcium 8.5 (L) 8.8 - 10.2 mg/dL [facility] Specimen Plasma specimen Performing Organization Address City/[facility] Phone Number [facility] DEPARTMENT OF PATHOLOGY AND [address] [place] [phone] [address] ECG 12 lead (10/05/2018 12:01 AM CDT)Only the most recent of4 resultswithin the time period is included. [facility] Ventricular rate 59 [facility] MUSE Atrial rate 59 [facility] MUSE OH interval 166 [facility] MUSE QRSD interval 74 [facility] QT interval 494 [facility] QTC interval 489 [facility] P axis 1 66 [facility] QRS axis 1 30 [facility] T wave axis 61 [facility] MUSE EKG impression Sinus bradycardia with occasional and consecutive premature ventricular complexes-Abnormal ECG-In automated comparison with ECG of 2018 14:20,-premature atrial complexes are no longer present-Marcelle [facility] MUSE ctronically Signed By Monico Nogueira ([id number]) on 10/05/2018 8:12:40 AM Specimen Narrative Performed At Performing Organization Address City/[facility]/Zipcode Phone Number [facility] [address] [place] [address] POC glucose (10/04/2018 12:41 AM CDT) [facility] POC glucose 131 (H) 65 - 99 mg/dL [facility] Comment: HOSPITAL [facility] Notified RN Meter ID: [id number] Fnp: Villegas Specimen Performing Organization Address City/[facility]/Zipcode Phone Number [facility] DEPARTMENT OF PATHOLOGY AND [address] [place] [phone] [place] [phone] Partial thromboplastin time, activated (10/03/2018 6:13 AM CDT) [facility] PTT 29.8 23.0 - 36.0 [facility] Comment: [facility] PTT therapeutic range for unfractionated heparin is 61.0-112.0 seconds which corresponds to Anti-Xa 0.3-0.7 U/ml. Specimen Blood Performing Organization Address City/[facility] Phone Number [facility] DEPARTMENT OF PATHOLOGY AND [address] [place] [phone] Prothrombin time with INR (10/03/2018 6:13 AM CDT) [facility] Prothrombin time 15.2 (H) 11.5 - 14.5 [facility] INR 1.2 [facility] Comment: LOS The International Normalized Ratio (INR) is a therapeutic HOSPITAL monitoring tool for patients who are stable on oral anticoagulant therapy. An INR of 2.0-3.0 is suggested for deep vein thrombosis/pulmonary embolism. Specimen Blood Performing Organization Address City/[facility] Phone Number [facility] DEPARTMENT OF PATHOLOGY AND [address] [place] [phone] CBC with platelet and differential (10/03/2018 6:13 AM CDT) [facility] WBC 7.53 4.50 - 11.00 [facility] RBC 4.30 4.20 - 5.50 [facility] HGB 12.3 12.0 - 16.0 [facility] g/dL [facility] HCT 40.0 37.0 - 47.0 % [facility] MCV 93.0 82.0 - 100.0 [facility] MCH 28.6 27.0 - 34.0 pg [facility] MCHC 30.8 (L) 31.0 - 37.0 [facility] g/dL [facility] RDW - SD 49.6 37.0 - 55.0 fL [facility] MPV 11.0 8.8 - 13.2 fL [facility] Platelet count 214 150 - 400 k/uL [facility] Nucleated RBC 0.00 /100 WBC [facility] Neutrophils 68.1 39.0 - 69.0 % [facility] Lymphocytes 18.3 (L) 25.0 - 45.0 % [facility] Monocytes 12.0 (H) 0.0 - 10.0 % [facility] Eosinophils 0.9 0.0 - 5.0 % [facility] Basophils 0.4 0.0 - 1.0 % [facility] Immature granulocytes 0.3Comment: 0.0 - 1.0 % [facility] "[facility] granulocytes" (promyelocytes , myelocytes, metamyelocytes ) Specimen Blood Performing Organization Address City/State/Zipcode Phone Number [facility] DEPARTMENT OF PATHOLOGY AND [address] [place] [address] [address] [address] Comprehensive metabolic panel (10/03/2018 6:13 AM CDT) Sodium 139 135 - 148 [facility] mEq/L [facility] Potassium 4.0 3.5 - 5.0 [facility] mEq/L [facility] Chloride 101 98 - 112 mEq/L [facility] CO2 27 24 - 31 mEq/L [facility] Anion gap 11@ANIO 7 - 15 mEq/L [facility] BUN 22 8 - 23 mg/dL [facility] Creatinine 0.82 0.50 - 0.90 [facility] mg/dL HOSPITAL Glucose 123 (H) 65 - 99 mg/dL [facility] Calcium 9.0 8.8 - 10.2 [facility] mg/dL HOSPITAL Protein 6.3 6.3 - 8.3 g/dL [facility] Comment: HOSPITAL [place] 4.6-7.0 g/dL 1 week 4.4-7.6 g/dL 7 months-1year5.1-7.3 g/dL 1-2 years5.6-7.5 g/dL >3 years6.0-8.0 g/dL 18-150 6.3-8.3 g/dL Albumin 3.0 (L) 3.5 - 5.0 g/dL [facility] A/G ratio 0.9 0.7 - 3.8 [facility] Alkaline phosphatase 101 35 - 104 U/L [facility] AST 33 10 - 35 U/L [facility] ALT 34 5 - 50 U/L [facility] Total bilirubin 0.4 0.0 - 1.2 [facility] mg/dL HOSPITAL Specimen Plasma specimen Performing Organization Address City/State/Zipcode Phone Number [facility] DEPARTMENT OF PATHOLOGY AND [address] [place] [address] GENOMIC MEDICINE [facility] [address] [place] [phone] after 11/15/2017 Insurance Payer Benefit Plan / Subscriber ID Effective Dates Phone Address Type Group [employer] MEDICARE HU[employer]NA MEDICARE xxxxxxxxx 2018-Present PPO PPO/PFFS/ERS [facility] ([id number] [place] [address] Advance Directives Patient has advance care planning documents on file. For more information, please contact:[address] [address]
[2018-11-16 08:21] LABS: Protime INR 1.18
[2018-11-16 08:24] LABS: Absolute Lymphocytes (CBC) 1.4 K/uL (0.7-4.9); Basophils % 0.7 % (0-1.3); Eosinophils % 1.5 % (0-4.4); Hematocrit 43.9 % (36.0-45.0); MPV 8.8 fL (7.6-11.3); Monocytes % 11.3 % (3.3-12.3); RBC Red Blood Cell Count 5.04 M/uL (3.86-4.86)
[2018-11-16] MEDS ORDERED: NA CHLORIDE 0.9% 500 ML ONE ×2 (08:24→11:19)
[2018-11-16] MEDS ORDERED: METOPROLOL TARTRATE 5 MG/5 ML INJ IV ONE (08:24)
--- NOTE | 2018-11-16 08:29 | RAD REPORT ---
EXAM DESCRIPTION: RAD - Chest Single View - 11/16/2018 8:09 am CLINICAL HISTORY: SOB;Chest pain Chest pain. COMPARISON: Chest Single View dated 08/21/2018; Chest Single View dated 07/19/2016; CHEST SINGLE VIEW dated 07/08/2015 FINDINGS: Portable technique limits examination quality. The lungs are grossly clear. Postsurgical changes of a prior CABG noted. No displaced fractures. IMPRESSION: No acute intrathoracic process suspected.
[2018-11-16 08:34] LABS: Albumin 3.4 g/dL (3.4-5.0); Bilirubin Direct 0.1 mg/dL (0-0.2); Bilirubin Total 0.5 mg/dL (0.2-1.0); Magnesium 1.9 mg/dL (1.8-2.4); Protein, Total 8.2 g/dL (6.4-8.2); Troponin (Emerg Dept Use Only) 0.03 ng/mL (0.0-0.045)
[2018-11-16] MEDS ORDERED: MIDAZOLAM HCL 2 MG/2 ML INJ ONE (11:18)
[2018-11-16] MEDS ORDERED: FENTANYL CITR 100 MCG/2 ML ONE (11:19)
--- NOTE | 2018-11-16 11:48 | EDPHYS ---
Physician Documentation [facility] Name: Svetlana Patel Age: 82 yrs Sex: Female : 1935 Arrival Date: 11/16/2018 Time: 07:37 Bed 4 Private MD: ED Physician Uri Woo HPI: 11/16 08:02 This 82 yrs old Female presents to ER via Ambulatory with complaints of AFib. pm1 08:02 The patient presents with a history of heart racing. Context: The symptoms occur at pm1 rest. Onset: The symptoms/episode began/occurred this morning. Duration: The patient or guardian reports a single episode, that is still ongoing. Associated signs and symptoms: Pertinent positives: chest pain, SOB, Pertinent negatives: fever, nausea, syncope, near-syncope, vomiting. Severity of symptoms: in the emergency department the symptoms are unchanged. The patient has experienced similar episodes in the past, multiple times. The patient has been recently seen by a physician: Dr. Bryan last week. Historical: - Allergies: 07:59 Amiodarone; ss 07:59 Multaq; ss - Home Meds: 08:03 Eliquis 2.5 mg oral tab 1 tab 2 times per day [Active]; dofetilide oral 250 mcg BID ss oral [Active]; atorvastatin 40 mg oral tab 1 tab once daily [Active]; cetirizine 10 mg oral tab 1 tab once daily [Active]; - PMHx: 07:59 Atrial Fib; Hyperlipidemia; Hypertension; ss - PSHx: 07:59 triple heart bypass; herniated disc; ss - Immunization history:: Adult Immunizations up to date. - Social history:: Smoking status: Patient/guardian denies using tobacco. - Ebola Screening: : Patient denies exposure to infectious person Patient denies travel to an Ebola-affected area in the 21 days before illness onset. ROS: 08:02 Constitutional: Negative for fever, chills, and weight loss, Eyes: Negative for injury, pm1 pain, redness, and discharge, ENT: Negative for injury, pain, and discharge, Neck: Negative for injury, pain, and swelling, Abdomen/GI: Negative for abdominal pain, nausea, vomiting, diarrhea, and constipation, Back: Negative for injury and pain, : Negative for injury, bleeding, discharge, and swelling, MS/Extremity: Negative for injury and deformity, Skin: Negative for injury, rash, and discoloration, Neuro: Negative for headache, weakness, numbness, tingling, and seizure. 08:02 Cardiovascular: Positive for chest pain, palpitations, Negative for edema. 08:02 Respiratory: Positive for shortness of breath, Negative for cough, sputum production, wheezing. Exam: 08:02 Constitutional: This is a well developed, well nourished patient who is awake, alert, pm1 and in no acute distress. Head/Face: Normocephalic, atraumatic. Neck: Trachea midline, no thyromegaly or masses palpated, and no cervical lymphadenopathy. Supple, full range of motion without nuchal rigidity, or vertebral point tenderness. No Meningismus. Chest/axilla: Normal chest wall appearance and motion. Nontender with no deformity. No lesions are appreciated. 08:02 Respiratory: Lungs have equal breath sounds bilaterally, clear to auscultation and percussion. No rales, rhonchi or wheezes noted. No increased work of breathing, no retractions or nasal flaring. Abdomen/GI: Soft, non-tender, with normal bowel sounds. No distension or tympany. No guarding or rebound. No evidence of tenderness throughout. Back: No spinal tenderness. No costovertebral tenderness. Full range of motion. Skin: Warm, dry with normal turgor. Normal color with no rashes, no lesions, and no evidence of cellulitis. MS/ Extremity: Pulses equal, no cyanosis. Neurovascular intact. Full, normal range of motion. 08:02 Cardiovascular: Rate: tachycardic, Rhythm: irregular, Edema: is not appreciated. 08:02 Neuro: Orientation: is normal, Mentation: is normal, Motor: is normal, moves all fours, Sensation: is normal, no obvious gross deficits. Vital Signs: 07:59 BP 145 / 71; Pulse 145; Resp 17; Temp 97.8; Pulse Ox 97% on R/A; Weight 53.52 kg; ss Height 5 ft. 0 in. (152.40 cm); Pain 5/10; 08:20 BP 125 / 91; Pulse 143; Resp 22; Pulse Ox 97% on R/A; ph 08:40 BP 115 / 74; Pulse 130; Resp 20; Pulse Ox 97% on R/A; ph 09:15 BP 122 / 69; Pulse 124; Resp 20; Pulse Ox 95% on R/A; ph 09:45 BP 112 / 66; Pulse 108; Resp 18; Pulse Ox 95% on R/A; ph 10:24 BP 118 / 74; Pulse 103; Resp 18; Pulse Ox 99% on R/A; ph 11:35 BP 141 / 76; Pulse 107; Resp 18; Pulse Ox 100% on 100% Non-rebreather mask; ph 11:45 BP 156 / 95; Pulse 87; Resp 18; Pulse Ox 100% on 100% Non-rebreather mask; ph 12:00 BP 109 / 54; Pulse 68; Resp 15; Pulse Ox 99% on 100% Non-rebreather mask; ph 12:24 BP 115 / 56; Pulse 67; Resp 18; Pulse Ox 99% on 100% Non-rebreather mask; ph 13:30 BP 122 / 60; Pulse 68; Resp 18; Temp 97.8; Pulse Ox 97% on R/A; ph 07:59 Body Mass Index 23.04 (53.52 kg, 152.40 cm) ss Procedures: 11:40 Cardioversion: (synchronized) for treatment of A fib, with 200 joules X 1. Post pm1 procedure rhythm is sinus rhythm, the patient tolerated the procedure well. MDM: 07:52 Patient medically screened. pm1 09:34 Physician consultation: Jaylon Breaux MD regarding consult, patient's condition, pm1 Recommends additional Lopressor in 15 minutes, if patient not in sinus rhythm then cardiovert since she has successfully cardioverted to sinus rhythm in the recent past . 09:38 ED course: Patient with systolic blood pressure 106. Will administer patient NS fluid pm1 prior to giving additional Lopressor. 11:52 Data reviewed: vital signs. Data interpreted: Pulse oximetry: on room air is 99 %. pm1 Interpretation: normal. Counseling: I had a detailed discussion with the patient and/or guardian regarding: the historical points, exam findings, and any diagnostic results supporting the discharge/admit diagnosis, lab results, radiology results, the need to transfer to another facility, for higher level of care. 11:53 Physician consultation: Jaylon Breaux MD in the emergency department to see patient at pm1 11:35, Present for patient's cardioversion. Dr. Breaux discussed case with Dr. Bryan. Dr. Bryan would like the patient transferred to [facility]. 12:21 Physician consultation: Jaylon Bryan canceled the transfer after discussion pm1 with Dr. Breaux regarding condition update and medication reconciliation. Dr. Bryan will follow up the the patient on an outpatient basis for possible ablation. 11/16 07:55 Order name: Basic Metabolic Panel; Complete Time: 08:53 pm11/16 07:55 Order name: CBC with Diff; Complete Time: 08:53 pm11/16 07:55 Order name: LFT's; Complete Time: 08:53 pm11/16 07:55 Order name: Magnesium; Complete Time: 08:53 pm11/16 07:55 Order name: NT PRO-BNP; Complete Time: 08:53 pm11/16 07:55 Order name: PT-INR; Complete Time: 08:53 pm11/16 07:55 Order name: Troponin (emerg Dept Use Only); Complete Time: 08:53 pm11/16 07:55 Order name: XRAY Chest (1 view); Complete Time: 08:53 pm11/16 07:55 Order name: EKG; Complete Time: 07:59 pm11/16 07:55 Order name: Cardiac monitoring; Complete Time: 08:05 pm11/16 07:55 Order name: EKG - Nurse/Tech; Complete Time: 08:05 pm11/16 07:55 Order name: IV Saline Lock; Complete Time: 08:05 pm11/16 07:55 Order name: Labs collected and sent; Complete Time: 08:05 pm11/16 07:55 Order name: O2 Per Protocol; Complete Time: 08:05 pm11/16 07:55 Order name: O2 Sat Monitoring; Complete Time: 08:05 pm1 EC:00 Rate is 149 beats/min. Rhythm is irregular, A fib. No Q waves. T waves are Normal. No pm1 ST changes noted. Clinical impression: Atrial Fibrillation. Administered Medications: 08:25 Drug: Lopressor 5 mg Route: IVP; Site: right antecubital; ph 09:15 Drug: Lopressor 5 mg Route: IVP; Site: left forearm; ph 09:46 Drug: NS 0.9% 500 ml Route: IV; Rate: bolus; Site: left forearm; ph 11:55 Follow up: Response: No adverse reaction; IV Status: Completed infusion; IV Intake: ph 500ml 10:11 Drug: Lopressor 5 mg Route: IVP; Site: right forearm; ph 10:45 Follow up: Response: No adverse reaction; Cardiac rhythm is unchanged; rate has ph decreased to 105 11:38 Drug: fentaNYL (PF) 50 mcg Route: IVP; Site: left forearm; ph 12:00 Follow up: Response: No adverse reaction; Patient is sedated ph 11:39 Drug: Versed 4 mg Route: IVP; Site: left forearm; ph 12:00 Follow up: Response: No adverse reaction; Patient is sedated ph 12:00 Drug: NS 0.9% 500 ml Route: IV; Rate: bolus; Site: left forearm; ph 13:00 Follow up: Response: No adverse reaction; IV Status: Completed infusion ph Disposition: 14:20 Co-signature as Attending Physician, Uri Woo MD I agree with the assessment and kdr plan of care. Disposition: 11/16/18 13:01 Discharged to Home. Impression: Paroxysmal atrial fibrillation. - Condition is Stable. - Discharge Instructions: Atrial Fibrillation, Electrical Cardioversion. - Medication Reconciliation Form, Thank You Letter, Antibiotic Education, Prescription Opioid Use form. - Follow up: Emergency Department; When: As needed; Reason: Worsening of condition. Follow up: Private Physician; When: 2 - 3 days; Reason: Recheck today's complaints, Continuance of care, Re-evaluation by your physician. - Problem is new. - Symptoms have improved. Signatures: Dispatcher [employer] EDRI Uri Woo MD MD [facility] Aretha Burgess RN RN Anusha Baldwin RN RN ph Nguyễn Ko, JOSE DEICER ELEMENT WINDER MACHINE pm1 Corrections: (The following items were deleted from the chart) 11:52 11:48 11/16/2018 11:48 Transfer ordered to [facility]. Diagnosis is pm1 Persistent atrial fibrillation. Reason for transfer: Higher level of care. Accepting physician is Randi. Condition is Stable. Problem is new. Symptoms have improved. pm1 12:21 11:52 11/16/2018 11:48 Transfer ordered to [facility]. Diagnosis is pm1 Paroxysmal atrial fibrillation. Reason for transfer: Higher level of care. Accepting physician is Randi. Condition is Stable. Problem is new. Symptoms have improved. pm1 14:18 13:01 11/16/2018 13:01 Discharged to Home. Impression: Paroxysmal atrial fibrillation. ph Condition is Stable. Forms are Medication Reconciliation Form, Thank You Letter, Antibiotic Education, Prescription Opioid Use. Follow up: Emergency Department; When: As needed; Reason: Worsening of condition. Follow up: Private Physician; When: 2 - 3 days; Reason: Recheck today's complaints, Continuance of care, Re-evaluation by your physician. Problem is new. Symptoms have improved. pm1
--- NOTE | 2018-11-16 11:48 | ER ---
[facility] Name: Svetlana Patel Age: 82 yrs Sex: Female : 1935 Arrival Date: 11/16/2018 Time: 07:37 Bed 4 Private MD: Diagnosis: Paroxysmal atrial fibrillation Presentation: 11/16 07:55 Presenting complaint: Patient states: Woke up this morning with palpitations, chest ss discomfort and sweating. Pt has a history of AFIB. Transition of care: patient was not received from another setting of care. Onset of symptoms was November 16, 2018. Risk Assessment: Do you want to hurt yourself or someone else? Patient reports no desire to harm self or others. Initial Sepsis Screen: Does the patient meet any 2 criteria? HR > 90 bpm. Does the patient have a suspected source of infection? No. Patient's initial sepsis screen is negative. Care prior to arrival: None. 07:55 Method Of Arrival: Ambulatory ss 07:55 Acuity: LUCIEN 2 ss Historical: - Allergies: 07:59 Amiodarone; ss 07:59 Multaq; ss - Home Meds: 08:03 Eliquis 2.5 mg oral tab 1 tab 2 times per day [Active]; dofetilide oral 250 mcg BID ss oral [Active]; atorvastatin 40 mg oral tab 1 tab once daily [Active]; cetirizine 10 mg oral tab 1 tab once daily [Active]; - PMHx: 07:59 Atrial Fib; Hyperlipidemia; Hypertension; ss - PSHx: 07:59 triple heart bypass; herniated disc; ss - Immunization history:: Adult Immunizations up to date. - Social history:: Smoking status: Patient/guardian denies using tobacco. - Ebola Screening: : Patient denies exposure to infectious person Patient denies travel to an Ebola-affected area in the 21 days before illness onset. Screenin:05 Abuse screen: Denies threats or abuse. Denies injuries from another. Nutritional ph screening: No deficits noted. Tuberculosis screening: No symptoms or risk factors identified. Fall Risk No fall in past 12 months (0 pts). No secondary diagnosis (0 pts). IV access (20 points). Ambulatory Aid- None/Bed Rest/Nurse Assist (0 pts). Gait- Normal/Bed Rest/Wheelchair (0 pts) Mental Status- Oriented to own ability (0 pts). Total Griffin Fall Scale indicates Low Risk Score (25-44 pts). Fall prevention measures have been instituted. Side Rails Up X 2 Frequent Obs/Assesments occuring Family Present and informed to notify staff if they need to leave bedside As available Patient and Family Educated on Fall Prevention Program and strategies. Assessment: 08:03 General: Appears in no apparent distress. comfortable, slender, well groomed, Behavior ph is calm, cooperative, appropriate for age. Pain: Complains of pain in anterior aspect of left upper chest and left breast. Neuro: Level of Consciousness is awake, alert, obeys commands, Oriented to person, place, time, situation. Cardiovascular: Reports chest pain, palpitations, shortness of breath, Capillary refill < 3 seconds in bilateral fingers Patient's skin is warm and dry. Rhythm is atrial fibrillation with rapid ventricular response. Respiratory: Reports shortness of breath at rest Airway is patent Respiratory effort is even, unlabored, Respiratory pattern is regular, symmetrical. GI: No signs and/or symptoms were reported involving the gastrointestinal system. Derm: Skin is intact, Skin is pink, warm \T\ dry. Musculoskeletal: Circulation, motion, and sensation intact. Range of motion: intact in all extremities. 09:19 Reassessment: Patient appears in no apparent distress at this time. Patient and/or ph family updated on plan of care and expected duration. Pain level reassessed. Patient is alert, oriented x 3, equal unlabored respirations, skin warm/dry/pink. Pt resting quietly, HR remains elevated at 125 bpm, IV established and 2nd round of Lopressor given, will continue to monitor. 10:30 Reassessment: Patient appears in no apparent distress at this time. Patient and/or ph family updated on plan of care and expected duration. Pain level reassessed. Patient is alert, oriented x 3, equal unlabored respirations, skin warm/dry/pink. HR decreased, pt reports that SOB and chest discomfort has decreased. 11:30 Reassessment: Patient appears in no apparent distress at this time. Patient and/or ph family updated on plan of care and expected duration. Pain level reassessed. Patient is alert, oriented x 3, equal unlabored respirations, skin warm/dry/pink. Heart rate decreased but remains slightly elevated at 105 bpm, Annel on monitor, Dr Breaux at bedside, preparing to cardiovert pt, consents signed by family. 12:00 Reassessment: Patient appears in no apparent distress at this time. Patient and/or ph family updated on plan of care and expected duration. Pain level reassessed. Pt sedated at this time and remains on supplemental oxygen, heart rate remains stable 65-68 bpm, other VSS, family at bedside, awaiting transfer. 13:00 Reassessment: Patient appears in no apparent distress at this time. Patient and/or ph family updated on plan of care and expected duration. Pain level reassessed. Pt resting quietly, remains drowsy from conscious sedation but awakens easily to verbal stimuli, denies pain , nausea, or SOB, HR remains stable in 60s. 14:00 Reassessment: Patient appears in no apparent distress at this time. Patient and/or ph family updated on plan of care and expected duration. Pain level reassessed. Patient is alert, oriented x 3, equal unlabored respirations, skin warm/dry/pink. Pt no longer being transferred, will call and make follow up appt w/ charge nurse in [place] and instructed to return to ED if symptoms return, d.c home w/ granddaughter. Vital Signs: 07:59 BP 145 / 71; Pulse 145; Resp 17; Temp 97.8; Pulse Ox 97% on R/A; Weight 53.52 kg; ss Height 5 ft. 0 in. (152.40 cm); Pain 5/10; 08:20 BP 125 / 91; Pulse 143; Resp 22; Pulse Ox 97% on R/A; ph 08:40 BP 115 / 74; Pulse 130; Resp 20; Pulse Ox 97% on R/A; ph 09:15 BP 122 / 69; Pulse 124; Resp 20; Pulse Ox 95% on R/A; ph 09:45 BP 112 / 66; Pulse 108; Resp 18; Pulse Ox 95% on R/A; ph 10:24 BP 118 / 74; Pulse 103; Resp 18; Pulse Ox 99% on R/A; ph 11:35 BP 141 / 76; Pulse 107; Resp 18; Pulse Ox 100% on 100% Non-rebreather mask; ph 11:45 BP 156 / 95; Pulse 87; Resp 18; Pulse Ox 100% on 100% Non-rebreather mask; ph 12:00 BP 109 / 54; Pulse 68; Resp 15; Pulse Ox 99% on 100% Non-rebreather mask; ph 12:24 BP 115 / 56; Pulse 67; Resp 18; Pulse Ox 99% on 100% Non-rebreather mask; ph 13:30 BP 122 / 60; Pulse 68; Resp 18; Temp 97.8; Pulse Ox 97% on R/A; ph 07:59 Body Mass Index 23.04 (53.52 kg, 152.40 cm) ss Vitals: 08:15 Cardiac Rhythm Assessment Atrial fibrillation W/rapid ventricular response. ph 10:24 Cardiac Rhythm Assessment Atrial fibrillation. ph 12:00 Cardiac Rhythm Assessment Sinus rhythm. ph ED Course: 07:37 Patient arrived in ED. as 07:46 Nguyễn Ko NP is PHCP. pm1 07:46 Uri Woo MD is Attending Physician. pm1 07:49 EKG done, by echo technician. reviewed by Nguyễn Ko NP. at1 07:57 Triage completed. ss 07:59 Arm band placed on right wrist. ss 08:02 Anusha Baldwin, RN is Primary Nurse. ph 08:02 Initial lab(s) drawn, by id, sent to lab. Missed attempt(s): 22 gauge in right ph antecubital area. Bleeding controlled, band aid applied, catheter tip intact. Missed attempt(s): 20 gauge in right antecubital area. Bleeding controlled, band aid applied, catheter tip intact. 08:05 X-ray completed. Portable x-ray completed in exam room. Patient tolerated procedure jb2 well. 08:05 Patient has correct armband on for positive identification. Placed in gown. Bed in low ph position. Call light in reach. Side rails up X2. engine monitor on. Pulse ox on. NIBP on. Door closed. Noise minimized. Warm blanket given. Head of bed elevated. 08:10 XRAY Chest (1 view) In Process Unspecified. EDMS 08:15 Missed attempt(s): 22 gauge in left wrist. Bleeding controlled, band aid applied, sg catheter tip intact. 10:46 EKG done, by echo technician. reviewed by Nguyễn Ko NP Repeat EKG. at1 11:40 Assist provider with cardioversion (synchronized) with pads, for treatment of A fib ph with 200 joules Set up for procedure. Performed by Jaylon Breaux MD Monitored with quality assurance monitor chassis, pulse ox, Post procedure rhythm is sinus rhythm. Patient tolerated well. Oxygen administration via non-rebreather mask \T\ 15L/min. 12:26 Patient transferred, IV remains in place. ph Administered Medications: 08:25 Drug: Lopressor 5 mg Route: IVP; Site: right antecubital; ph 09:15 Drug: Lopressor 5 mg Route: IVP; Site: left forearm; ph 09:46 Drug: NS 0.9% 500 ml Route: IV; Rate: bolus; Site: left forearm; ph 11:55 Follow up: Response: No adverse reaction; IV Status: Completed infusion; IV Intake: ph 500ml 10:11 Drug: Lopressor 5 mg Route: IVP; Site: right forearm; ph 10:45 Follow up: Response: No adverse reaction; Cardiac rhythm is unchanged; rate has ph decreased to 105 11:38 Drug: fentaNYL (PF) 50 mcg Route: IVP; Site: left forearm; ph 12:00 Follow up: Response: No adverse reaction; Patient is sedated ph 11:39 Drug: Versed 4 mg Route: IVP; Site: left forearm; ph 12:00 Follow up: Response: No adverse reaction; Patient is sedated ph 12:00 Drug: NS 0.9% 500 ml Route: IV; Rate: bolus; Site: left forearm; ph 13:00 Follow up: Response: No adverse reaction; IV Status: Completed infusion ph Intake: 11:55 IV: 500ml; Total: 500ml. ph Outcome: 11:48 ER care complete, transfer ordered by MD. pm1 13:01 Discharge ordered by pm1 14:18 Patient left the ED. ph 14:18 Discharged to home via wheelchair, with family. ph 14:18 Condition: improved 14:18 Discharge instructions given to patient, family, Instructed on discharge instructions, follow up and referral plans. Demonstrated understanding of instructions, follow-up care. Signatures: Dispatcher [employer] EDMayank Dhaliwal RN RN sg Buechter, Jesse jb2 Martinez, Amelia as Smirch, Shelby, RN RN Gertrude Jay, supervisor acoustical tile carpent[employer] EKG Tat1 Anusha Baldwin RN RN ph Nguyễn Ko, [employer] pm1 Corrections: (The following items were deleted from the chart) 08:01 07:59 BP 145 / 71; Pulse 17bpm; Resp 17bpm; Pulse Ox 97% RA; Temp 97.8F; 53.52 kg; ss Height 5 ft. 0 in.; BMI: 23.0; Pain 5/10; ss
--- NOTE | 2018-11-16 12:38 | EKG ---
Test Date: 2018-11-16 Test Time: 07:49:56 Broadband Technician: ARIANA MEASUREMENT RESULTS: Intervals: Rate: 149 [place]: QRSD: 66 QT: 302 QTc: 475 [place]: P: [place]: QRS: -5 T: 48 INTERPRETIVE STATEMENTS: Atrial fibrillation with rapid ventricular response with premature ventricular or aberrantly conducted complexes Nonspecific ST abnormality, probably digitalis effect Abnormal ECG Compared to ECG 10/07/2018 15:13:20 Ventricular premature complex(es) now present ST (T wave) deviation now present Sinus rhythm no longer present Atrial premature complex(es) no longer present Fusion complex(es) no longer present Aberrant conduction of supraventricular beat(s) no longer present Myocardial infarct finding no longer present Prolonged QT interval no longer present Electronically Signed On 11-16-18 12:37:54 CDT by Jaylon Breaux
[2018-11-16 14:54] VITALS: TEMP 97.8
[2018-11-16 15:06] VITALS: O2SAT 99
[2018-11-16 15:07] VITALS: BP 115/56
--- NOTE | 2018-11-17 07:34 | EKG ---
Test Date: 2018-11-16 Test Time: 11:39:03 Senior Integration Developer: ERMELINDA MEASUREMENT RESULTS: Intervals: Rate: 68 [place]: 158 QRSD: 72 QT: 434 QTc: 461 [place]: P: 86 [place]: 158 QRS: 5 T: 52 INTERPRETIVE STATEMENTS: Sinus rhythm with premature atrial complexes Otherwise normal ECG Compared to ECG 11/16/2018 10:44:25 Atrial premature complex(es) now present Atrial fibrillation no longer present Myocardial infarct finding no longer present Electronically Signed On 11-17-18 07:32:25 CDT by Ash Colon
--- NOTE | 2018-11-17 07:34 | EKG ---
Test Date: 2018-11-16 Test Time: 10:44:25 Coat Baster: SOFIA MEASUREMENT RESULTS: Intervals: Rate: 103 [place]: QRSD: 68 QT: 362 QTc: 474 [place]: P: [place]: QRS: -5 T: 30 INTERPRETIVE STATEMENTS: Atrial fibrillation with rapid ventricular response Inferior infarct, age undetermined Abnormal ECG Compared to ECG 11/16/2018 07:49:56 Myocardial infarct finding now present Ventricular premature complex(es) no longer present ST (T wave) deviation no longer present Electronically Signed On 11-17-18 07:32:29 CDT by Ash Colon
== END 2018-11-16 14:18 | disposition home or self-care (01) ==
LOC: ER 07:36
DX: I48.0 Paroxysmal atrial fibrillation (principal); E78.5 Hyperlipidemia, unspecified; I10 Essential (primary) hypertension; Z88.8 Allergy status to other drugs, medicaments and biological substances; Z79.01 Long term (current) use of anticoagulants
CPT/HCPCS: 92960; 93005 ×3; 85025; 80048; 36415; 83735; 85610; 80076; 84484; 83880; 71045; 99291; J2250; J3010

== ENCOUNTER 2020-05-10 04:39 | Inpatient (IN) | payer OTHER ==
--- OUTSIDE RECORDS SUMMARY | 2020-05-10 04:41 | XMS REPORT | Clinical Summary ---
:1935 Author Organization [facility] Address [address] [place] [address] Care Team Providers Name Role Phone MD Shaina Primary Care Provider Allergies No Known Active Allergies Medications Medication Sig Dispensed Refills Start End Date Status Date atorvastatin Take 40 mg by 0 Act lj (LIPITOR) 40 MG mouth daily. tablet vit Take 1 tablet by 0 Act lj C/E/Zn/coppr/lute mouth 2 (two) in/zeaxan times a day. (PRESERVISION AREDS-2 ORAL) loratadine Take 10 mg by 0 Activ e (CLARITIN) 10 mg mouth daily as tablet needed for allergies. hypromellose Administer 1-3 0 Ac tive (SYSTANE GEL drops to both OPHT) eyes 2 (two) times a day. apixaban Take 2.5 mg by 0 Activ e (ELIQUIS) 2.5 mg mouth 2 (two) tablet times a day. Lactobac Take 1 tablet by 0 Act lj no.41/Bifidobact mouth daily. no.7 (PROBIOTIC-10 ORAL) IPRATROPIUM 2 application 0 Acti ve BROMIDE NASL into each nostril 2 (two) times a day as needed (allergies). colchicine 0.6 mg Take 0.5 tablets 15 tablet 0 Active tablet (0.3 mg total) 0 by mouth 2 (two) times a day. dofetilide Take 250 mcg by 0 03/01/20 Dis continued (TIKOSYN) 250 MCG mouth 2 (two) 20 capsule times a day. metoprolol Take 50 mg by 0 03/04/20 Disco ntinued succinate XL mouth every 20 (Reor juanjo) (TOPROL-XL) 50 mg morning. 24 hr tablet amLODIPine Take 5 mg by 0 03/05/20 Discon tinued (NORVASC) 5 mg mouth as needed 20 (Stop Taking at tablet (take if sbp is Disc harge) higher than 150). sotaloL (sotalol Take 1 tablet 60 tablet 1 03/05/20 Discontinued AF) 80 MG tablet (80 mg total) by 0 20 (Stop Taking at mouth 2 (two) Discha rge) times a day for 30 days. sucralfate Take 1 tablet (1 120 tablet 0 04/03/20 E xpired (Carafate) 1 gram g total) by 0 20 tablet mouth 4 (four) times a day for 30 days. pantoprazole Take 1 tablet 30 tablet 0 04/03/20 Exp ired (Protonix) 40 MG (40 mg total) by 0 20 EC tablet mouth daily for 30 days. metoprolol Take 0.5 tablets 15 tablet 0 04/03/20 Ex pired succinate XL (25 mg total) by 0 20 (TOPROL-XL) 50 mg mouth every 24 hr tablet morning for 30 days. sotaloL Take 1 tablet 30 tablet 0 04/05/20 d (BETAPACE) 80 MG (80 mg total) by 0 20 tablet mouth daily for 30 days. 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); MD Gómez Essential (prim ventura) hypertension 03/22/2020 Travel 03/22/2020 Transcribe Orders Access Felipe Bryan Shortness of breath MD óGmez (Primary Dx) 03/04/2020 Surgery Procedural Felipe Bryan EP COMPLETE EP STUDY Cardiology MD Gómez W ABLATION PULM ONARY VEIN [89115 (CP T)] 03/04/2020 Anesthesia Event Procedural Mcintyre, Cardiology Mary Thomas MD 03/04/2020 - Hospital Encounter General Internal Felipe Bryan Atria l fibrillation, 03/05/2020 Medicine MD Gómez unspecified typ e (HCC) 03/04/2020 Travel 03/01/2020 Lab Lab Felipe Bryan Encounter for MD Gómez preprocedural cardiovascular examination (Pr imary Dx) 03/01/2020 Travel 02/19/2020 Travel after 05/10/2019 Surgical History Surgery Date Site/Laterality Comments CORONARY ARTERY BYPASS GRAFT Jul EYE SURGERY left cataract re moval CARDIAC SURGERY BACK SURGERY herniated disc r epair SKIN BIOPSY CARDIAC ELECTROPHYSIOLOGY 01/10/2019 N/A Proced ure: EP COMPLETE EP PROCEDURE STUDY W ABLATION PULMONARY VEIN; Surgeon: Ace Francisco MD; Location: [facility] Sheet Folder Invasive Locatio n; Service: Cardiol ogy; Laterality: N/A; CARDIAC ELECTROPHYSIOLOGY 01/11/2019 N/A Proced ure: Insertion PROCEDURE pacemaker pulse generator; Surg tomas: Ace Francisco MD; Location: [facility] Sheet Folder Invasive Locatio n; Service: Cardiol ogy; Laterality: N/A; [facility] Medical devices from this surgery are in t he Implants section . 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 No t asked Sex Assigned at Date Recorded Not on file Last Filed Vital Signs Vital Sign Reading Time Taken Comments Blood Pressure 116/55 03/05/2020 11:45 AM CDT Pulse 93 03/05/2020 11:45 AM CDT Temperature 36.5 C (97.7 F) 03/05/2020 11:45 AM CDT Respiratory Rate 18 03/05/2020 11:45 AM CDT Oxygen Saturation 91% 03/05/2020 11:45 AM CDT Inhaled Oxygen Concentration - - Weight 54.1 kg (119 lb 6 oz) 03/04/2020 6:34 AM CDT Height 152.4 cm (5') 03/04/2020 6:34 AM CDT Body Mass Index 23.31 03/04/2020 6:34 AM CDT Plan of Treatment Health Maintenance Due Date Last Done Comments SHINGLES VACCINES (#1) 12/31/1983 65+ PNEUMOCOCCAL VACCINE (1 of 1 - PPSV23) 1998 INFLUENZA VACCINE 2019 Implants Implanted Type Area Apple Picker Device Shelf Model / Identifier Expiration Serial / Date Lot Assurity Mri Dual - [id number] Cardiac N/A: 06/30/2020 [id number] / Implanted: 01/11/[address] [facility] (Quantity not on file) Pacemaker N/A [id number] / Generators [id number] Lead Pace Bipolar Is-1 Endocrdl 46cm - [id number] Cardiac Pacing N/A: [facility] [employer] 11/27/20218TC/46 / Implanted: 01/11/[address] [facility] (Quantity not on file) Leads or N/A [id number] / Electrodes or [id number] Accessories Tendril Sts, Pacemaker Leads, Model [id number]/52 - [id number] Cardiac Pacing N/A: 11/27/20218TC/52 / Implanted: 01/11/[address] [facility] (Quantity not on file) Leads or N/A [id number] / Electrodes or [id number] Accessories Procedures Procedure Name Priority Date/Time Associated Diagnosis Comme nts XR CHEST 2 VW Routine 03/22/2020 3:45 Shortness of breath Res ults for this PM CDT procedure are i n the results section. ESTIMATED GFR Routine 03/22/2020 2:49 Results fo r this PM CDT procedure are i n the results section. B NATRIURETIC PEPTIDE Routine 03/22/2020 2:49 Other half-way Results for this PM CDT (current) drug procedure are in therapy the results Essential (primary) section. hypertension HC COMPLETE BLD COUNT Routine 03/22/2020 2:49 Other half-way Results for this W/AUTO DIFF PM CDT (current) drug procedure are in therapy the results Essential (primary) section. hypertension COMPREHENSIVE Routine 03/22/2020 2:49 Other half-way Results for this METABOLIC PANEL PM CDT (current) drug procedure are in therapy the results Essential (primary) section. hypertension ECG 12-LEAD Routine 03/05/2020 9:57 Results for this AM CDT procedure are i n the results section. ECG 12-LEAD Routine 03/04/2020 10:18 Results for this PM CDT procedure are i n the results section. ESTIMATED GFR Routine 03/04/2020 6:35 Results fo r this PM CDT procedure are i n the results section. MAGNESIUM LEVEL Routine 03/04/2020 6:35 Results for this PM CDT procedure are i n the results section. BASIC METABOLIC PANEL Routine 03/04/2020 6:35 Re sults for this PM CDT procedure are i n the results section. ECG 12-LEAD STAT 03/04/2020 1:05 Results for this PM CDT procedure are i n the results section. EP COMPLETE EP STUDY W Routine 03/04/2020 12:54 Atrial fibrill ation, Results for this ABLATION PULMONARY PM CDT unspecified type proce dure are in VEIN (HCC) the results section. ACTIVATED CLOTTING Routine 03/04/2020 12:34 Resul ts for this TIME PM CDT procedure are i n the results section. ACTIVATED CLOTTING Routine 03/04/2020 12:17 Resul ts for this TIME PM CDT procedure are i n the results section. ACTIVATED CLOTTING Routine 03/04/2020 11:35 Resul ts for this TIME AM CDT procedure are i n the results section. ACTIVATED CLOTTING Routine 03/04/2020 11:13 Resul ts for this TIME AM CDT procedure are i n the results section. ACTIVATED CLOTTING Routine 03/04/2020 10:04 Resul ts for this TIME AM CDT procedure are i n the results section. ACTIVATED CLOTTING Routine 03/04/2020 9:15 Resul ts for this TIME AM CDT procedure are i n the results section. ACTIVATED CLOTTING Routine 03/04/2020 9:06 Resul ts for this TIME AM CDT procedure are i n the results section. ACTIVATED CLOTTING Routine 03/04/2020 9:00 Resul ts for this TIME AM CDT procedure are i n the results section. TYPE AND SCREEN Routine 03/04/2020 9:00 Results for this AM CDT procedure are i n the results section. ARTERIAL LINE Routine 03/04/2020 8:44 Results fo r this AM CDT procedure are i n the results section. MT AN ELECTIVE Routine 03/04/2020 8:42 Results f or this ENDOTRACHEAL AIRWAY AM CDT procedur e are in the results section. ECG PRE/POST OP Routine 03/04/2020 6:29 Results for this AM CDT procedure are i n the results section. ESTIMATED GFR Routine 03/01/2020 1:10 Results fo r this PM CDT procedure are i n the results section. MAGNESIUM LEVEL Routine 03/01/2020 1:10 Encounter for Results for this PM CDT preprocedural procedure are in cardiovascular the results examination section. PARTIAL THROMBOPLASTIN Routine 03/01/2020 1:10 Encounter for Results for this TIME (PTT) PM CDT preprocedural procedure are in cardiovascular the results examination section. PROTHROMBIN TIME WITH Routine 03/01/2020 1:10 Encounter for R esults for this INR PM CDT preprocedural procedure are in cardiovascular the results examination section. HC COMPLETE BLD COUNT Routine 03/01/2020 1:10 Encounter for R esults for this W/AUTO DIFF PM CDT preprocedural procedure are in cardiovascular the results examination section. COMPREHENSIVE Routine 03/01/2020 1:10 Encounter for Results f or this METABOLIC PANEL PM CDT preprocedural procedure a re in cardiovascular the results examination section. COVID-19 QUALITATIVE Routine 03/01/2020 1:00 Encounter for Re sults for this PCR PM CDT preprocedural procedure are in cardiovascular the results examination section. after 05/10/2019 Results XR Chest 2 Vw (03/22/2020 3:45 PM CDT) Specimen Narrative Performed At EXAMINATION: XR CHEST 2 VW HM [facility] CLINICAL HISTORY:84 years Female R06.02 Shortness o f breath, R06.02 OPC COMPARISON: 01/11/2019 IMPRESSION: 1.Midline sternotomy wires. Left chest wall cardiac de vice with 2 leads which are intact. The heart size is mildly prominent, stable. There are calcifications in a tortuous aorta. The central vasculature is normal. 2.The lungs are clear without consolidat ion or effusion. 3.Degenerative changes in the spine. [id number] Procedure Note Hm Interface, Radiology Results Incoming - 03/22/2020 3:55 PM CDT EXAMINATION: XR CHEST 2 VW CLINICAL HISTORY:84 years Female R06.0 2 Shortness of breath, R06.02 OPC COMPARISON: 01/11/2019 IMPRESSION: 1.Midline sternotomy wires. Left chest w all cardiac device with 2 leads which are intact. The heart size is mildly prominent, stable. There are calcifications in a tortuous aorta. The central vasculature is normal. 2.The lungs are clear without consolidat ion or effusion. 3.Degenerative changes in the spine. [id number] Performing Organization Address City/[facility] Phon e Number [facility] [address] [place] [address] Estimated GFR (03/22/2020 2:49 PM CDT)Only the most recent of3 resultswithin the time period is included. Estimated GFR 72 mL/min/1.73 [facility] Comment: m2 HOSPITAL Catergory Units Interpretation G1 >=90 Normal or high G2 60-89 Mildly decreased G3a 45-59 Mildly to moderately decreas ed G3b 30-44 Moderately to severely decre ased G4 15-29 Severely decreased G5 <15 Kidney failure The eGFR was calculated using the Chronic Kidney Disea se Epidemiology Collaboration (CKD-EPI) equation. Interpretation is based on recommendations of the National Kidney Foundation-Kidney Disease Outcomes Joey lity Initiative (NKF-KDOQI) published in 2014. Specimen Plasma Performing Organization Address City/[facility] Phon e Number [facility] DEPARTMENT OF PATHOLOGY AND [address] [place], [place] [phone] GENOMIC MEDICINE [facility] [address] [place] [address] CBC with platelet and differential (03/22/2020 2:49 PM CDT)Only the most recent of2 resultswithin the time period is included. WBC 6.00 4.50 - 11.00 [facility] k/uL [facility] RBC 4.37 4.20 - 5.50 [facility] m/uL [facility] HGB 12.3 12.0 - 16.0 [facility] g/dL [facility] HCT 38.5 37.0 - 47.0 % [facility] MCV 88.1 82.0 - 100.0 [facility] MCH 28.1 27.0 - 34.0 pg [facility] MCHC 31.9 31.0 - 37.0 [facility] g/dL [facility] RDW - SD 44.8 37.0 - 55.0 fL [facility] MPV 10.0 8.8 - 13.2 fL [facility] Platelet count 249 150 - 400 k/uL [facility] Nucleated RBC 0.00 /100 WBC [facility] Neutrophils 53.9 39.0 - 69.0 % [facility] Lymphocytes 32.3 25.0 - 45.0 % [facility] Monocytes 11.0 (H) 0.0 - 10.0 % [facility] Eosinophils 2.3 0.0 - 5.0 % [facility] Basophils 0.3 0.0 - 1.0 % [facility] Immature granulocytes 0.2Comment: 0.0 - 1.0 % [facility] "Immature [facility] granulocytes" (promyelocytes , myelocytes, metamyelocytes ) Specimen Plasma Performing Organization Address City/[facility] Phon e Number [facility] DEPARTMENT OF PATHOLOGY AND [address] [place] [address] [address] B natriuretic peptide (03/22/2020 2:49 PM CDT) Pathologist Sig nature BNP 369 (H) 0 - 100 pg/mL [facility] Specimen Blood Performing Organization Address City/[facility] Phon e Number [facility] DEPARTMENT OF PATHOLOGY AND [address] [place] [address] [phone] [address] Comprehensive metabolic panel (03/22/2020 2:49 PM CDT)Only the most recent of2 resultswithin the time period is included. Sodium 143 135 - 148 [facility] mEq/L [facility] Potassium 3.8 3.5 - 5.0 [facility] mEq/L [facility] Chloride 99 98 - 112 [facility] mEq/L HOSPITAL CO2 28 24 - 31 mEq/L [facility] Anion gap 16@ANIO (H) 7 - 15 mEq/L [facility] BUN 17 8 - 23 mg/dL [facility] Creatinine 0.75 0.50 - 0.90 [facility] mg/dL HOSPITAL Glucose 102 (H) 65 - 99 mg/dL [facility] Calcium 8.7 (L) 8.8 - 10.2 [facility] mg/dL [facility] Protein 7.3 6.3 - 8.3 [facility] Comment: g/dL [facility] [place] 4.6-7.0 g/dL 1 week 4.4-7.6 g/dL 7 months-1year 5.1-7.3 g/dL 1-2 years 5.6-7.5 g/dL >3 years 6.0-8.0 g/dL 18-150 6.3-8.3 g/dL Albumin 3.4 (L) 3.5 - 5.0 [facility] g/dL [facility] A/G ratio 0.9 0.7 - 3.8 [facility] Alkaline phosphatase 92 35 - 104 U/L [facility] AST 21 10 - 35 U/L [facility] ALT 14 5 - 50 U/L [facility] Total bilirubin 0.5 0.0 - 1.2 [facility] mg/dL HOSPITAL Specimen Plasma Performing Organization Address [facility] Phon e Number [facility] DEPARTMENT OF PATHOLOGY AND [address] [place] [phone] GENOMIC MEDICINE [address] [address] ECG 12 lead (03/05/2020 9:57 AM CDT)Only the most recent of3 resultswithin the time period is included. Pathologist Sig nature Ventricular rate 72 [facility] Atrial rate 72 [facility] MT interval 184 [facility] QRSD interval 70 [facility] QT interval 420 [facility] QTC interval 459 [facility] P axis 1 77 [facility] QRS axis 1 -3 [facility] T wave axis 47 [facility] EKG impression Electronic atrial pacemaker- Cannot rule out Inferior infarct (cited on or before 04-MAR-2020)-Abnormal ECG-In automated comparison with ECG of 04-MAR-2020 22:18,-No significant change was found-Electronically Signed By Davion De La Torre MD ([id number]) on [facility] MUSE 03/05/2020 9:24:59 PM Specimen Narrative Performed At This result has an attachment that is no t available. Performing Organization Address City/[facility] Phon e Number [facility] MUSE [address] [place] [address] Magnesium level (03/04/2020 6:35 PM CDT)Only the most recent of2 resultswithin the time period is included. Pathologist Sig nature Magnesium 1.4 (L) 1.6 - 2.4 mg/dL [facility] L Specimen Blood Performing Organization Address City/[facility] Phon e Number [facility] DEPARTMENT OF PATHOLOGY AND [address] [place] [phone] [facility] [address] [place] [address] Basic metabolic panel (03/04/2020 6:35 PM CDT) Pathologist Sig nature Sodium 141 135 - 148 mEq/L [facility] Potassium 3.9 3.5 - 5.0 mEq/L [facility] Chloride 100 98 - 112 mEq/L [facility] CO2 25 24 - 31 mEq/L [facility] Anion gap 16@ANIO (H) 7 - 15 mEq/L [facility] BUN 17 8 - 23 mg/dL [facility] Creatinine 0.72 0.50 - 0.90 mg/dL [facility] Glucose 143 (H) 65 - 99 mg/dL [facility] Calcium 8.8 8.8 - 10.2 mg/dL [facility] Specimen Blood Performing Organization Address City/State/ZIP Code Phon e Number [facility] DEPARTMENT OF PATHOLOGY AND [address] [place] [address] [phone] [address] Electrophysiology procedure (03/04/2020 12:54 PM CDT) Specimen Narrative Performed At This result has an attachment that is no t available. TOUCH UP EDGER: ANN Bryan MD COMPLICATIONS: None. ESTIMATED BLOOD LOSS: 10 mL SPECIMEN REMOVED: None. ANESTHESIA: General. PROCEDURES PERFORMED: 1. Atrial fibrillation ablation with pulmonary vein isolation. 2. Extra pulmonary vein ablation with posterior wall isolation. 3. Atrial flutter ablation separate from prior mecha nism. 4. PAC ablation separate from prior mechanism. 5. Posterior wall and anterior wall ablation for sub strate modification. 6. Intracardiac echocardiogram. 7. 3D mapping. 8. Pharmacologic drug infusion. 9. Periprocedural Pacemaker interrogation, reprogram gagandeep. 10. Pharmacologic drug infusion. ANESTHESIA: General. PREOPERATIVE DIAGNOSES: 1. Recurrent atrial fibrillation/atrial flutter. 2. History of persistent atrial fibrillation status post pulmonary vein ablation. 3. Sick sinus syndrome status post dual chamber pace maker. 4. Coronary artery disease. POSTOPERATIVE DIAGNOSES: 1. Recurrent atrial fibrillation/atrial flutter. 2. History of persistent atrial fibrillation status post pulmonary vein ablation. 3. Sick sinus syndrome status post dual chamber pace maker. 4. Coronary artery disease. HISTORY OF PRESENT ILLNESS: The patient is an 84-year-old female with the above me dical history who was referred for EP study and ablation for recurrent drug refractory or drug-intolerant atrial fibrillation. The patient had a prior history of pulmonary vein ablation with pulmonary vein isolation and posterior wall isolation. PROCEDURE IN DETAIL: The patient was brought to the procedure room in a fas ting state. Informed consent was obtained. The patient was prepped and dr aped in the usual sterile fashion. General anesthesia was used for the procedu re. Ultrasound-guided vascular access obtained in the right femoral vein. Catheter was advanced including an intracardiac echocardiogram, which was us ed to exclude left atrial appendage clot and monitor catheter positioning, monit or pericardial effusion and recreate 3D geometry and assist with transseptal p uncture. Heparin bolus was given immediately after vascular access. Transse ptal puncture was performed. This was somewhat challenging due to the atrial leads and the bulging left atrial septum. After successful transse ptal puncture, a voltage map and activation map was done at baseline. Baselin e rhythm was sinus/atrial paced rhythm. The left veins were isolated. The ri ght pulmonary veins had reconnections along the antral aspect, along with post erior wall evident with a pacing capture. The patient also had a significant a mount of LA scarring along the anterior wall. We proceeded with initial ablatio n along the LA roof and targeted posterior wall ablation and then extended our lesion set to the mitral annulus to incorporate the area of scarring. Block a long the anterior septal mitral line was evident. Pacing on either side of li ne of the block demonstrating change in CS activation. We then did p rogram atrial stimulation, was up to triple atrial stimuli with no dysrhythmias; started the patient on isoproterenol. We were then able to provoke an atria l tachycardia that degenerated into atrial fibrillation. Mapping was do ne in the left atrium. No interesting areas of long fractionated signals were ev ident in the left atrium. As we came to map on to the right atrium, the patient' s atrial fibrillation terminated and then she would go into recurrent atrial flutter. This was mapped and was consistent with a counterclockwise atrial flut ter. By activation mapping, an entrainment was done from the lateral RA w all and the proximal CS os to confirm good return cycle lengths. We then procee ded to ablate along the CTI with cycle lengths slowing and termination of tachycar della. Bidirectional CTI block was achieved and confirmed with differential sit e mapping and differential site pacing. We then went back to the left atrium to map a PAC, which then originated along the LA ridge anterior to the left inf erior pulmonary vein. Ablation was targeted along this area with reduction i n PVCs. We then reconfirmed that the posterior wall was still isolated with high output atrial pacing. At this point, the procedure was completed. All catheter and sheaths were removed. No evidence of pericardial effusion at the end of the case. FINDINGS: Mean LA pressure was 14 to 16. AV Wenckebach achieve d at 309 milliseconds. AV node ERP and atrial ERP was [address] train of 600 milliseconds. Bidirectional CTI block achieved with conduction acro ss line block of 150 and 160 milliseconds confirmed under site mapping. Intra septal mitral line block was also evident. Pacing on either side of line, CS activation with change. Posterior wall was isolated with an entrance and exit block achieved. Left atrial PAC was targeted along the LA ridge. Catheter ablation was performed using arnold between 35 to 45 garcia with contact force between 7 and 35 grams. Duration of lesions were limited to 6 to 10 seconds al niki the posterior wall. IIn the remainder of the atrium, duration was up to 8 to 15 seconds with arnold between 35 to 45 garcia. A second transseptal sheath had been placed for direct left atrial imaging to monitor for tissue echogenicity and contact throughout the case. CONCLUSION: 1. Baseline isolation of the pulmonary veins except for the antral aspect of the right inferior pulmonary vein. These were re-iso lated with ablation along the LA roof and the posterior wall. 2. Re-isolation isolation of the posterior wall with entrance and exit block achieved with targeted posterior wall ablation and LA roof ablation. 3. Anteroseptal mitral line performed for a large ar ea of anterior wall Scarring with line of block evident with pacing on e ither side of the line.Pacing lateral aspect of the line. CS activation was distal to prox imal and pacing just on Medial aspect of the line, CS activation would change from proximal to distal. 4. A PAC was also mapped in the left atrium along the LA ridge anterior to the left inferior pulmonary vein 5. A CTI dependent atrial flutter was provoked and eliminated during ablation with bidirectional CTI bloc k achieved confirmed with differential site mapping and pacing with a conduction of the block 150 to 160 milliseconds. 6. No induced arrhythmias with aggressive triple atria l stimulation; as noted atrial fibrillation provoked with high-dose isoproterenol at 10 mcg per minute, which th en terminated and organized into an atrial flutter, which was then targe jonathan along the CTI. RECOMMENDATIONS: The patient will complete the appropriate postprocedur e wound care and activity restriction. Performing Organization Address [facility]/ZIP Code Phon e Number [facility] [id number] [place] [address] Activated clotting time (03/04/2020 12:34 PM CDT)Only the most recent of8 resultswithin the time period is included. Activated 149 96 - 152 sec [place] clotting time Comment: EVANGEL[facility] Meter ID: [id number] Digital Producer ID: Rashmi Tapia Specimen Performing Organization Address [facility] Phon e Number [facility] DEPARTMENT OF PATHOLOGY AND [address] [place] [address] [phone] [address] Type and screen (03/04/2020 9:00 AM CDT) Pathologist Sig nature ABO grouping O [facility] Rh type POS [facility] Antibody screen (gel) NEG [facility] Specimen Blood Performing Organization Address [facility] Phon e Number [facility] DEPARTMENT OF PATHOLOGY AND [address] [place] [address] [phone] [address] Arterial line (03/04/2020 8:44 AM CDT) Narrative Performed At Regina Caraballo CRNA 8:45 AM Arterial line Performed by: Regina Caraballo CRN A Authorized by: Mary Mcintyre MD Patient Location: OR Start Time: 03/04/2020 8:25 AM End Time: 03/04/2020 8:30 AM Staff: Anesthesiologist: Jonathan Mcintyre MD Performed by: Anesthesiologist Pre-procedure: patient identified, IV ch ecked, site and side verified, risks and benefits discussed, procedure verified, surgical consent complete, patient position confirmed, mo nitors and equipment checked, pre-op evaluation complete and timeout p erformed prior to procedure MSBT: antiseptic used, all elements of maximal sterile barrier technique followed, hand hygiene performed, cap/go wn used by other personnel and solutions labeled Indications: Indications: hemodynamic monitoring Anesthesia: Anesthesia: General Procedure Details: Arterial Line placement: Placed pos t induction Line placement site: Radial Line placement side: Right Arterial line gauge: 20 G Number of attempts: 1 Ultrasound guidance used: Yes Post-procedure: Post-procedure: Sterile dressing ap plied Post procedure circulation, sensation , movement: Normal Patient tolerance: Patient tolerate d the procedure well with no immediate complications Notes: Airway (03/04/2020 8:42 AM CDT) Narrative Performed At Regina Caraballo CRNA 020 8:45 AM Airway Date/Time: 03/04/2020 8:23 AM Performed by: Regina Caraballo CRN A Authorized by: Mary Mcintyre MD Location: OR Urgency: Elective Difficult Airway: No Anesthesiologist: Mary Mcintyre MD Resident/HEALTH AND SAFETY TRAINER/AA: Meño Caraballo CRNA Performed by: resident/HEALTH AND SAFETY TRAINER/AA Preoxygenated with 100% O2: Yes C-spine Precautions Maintained Throughou t: Yes Mask Ventilation: Easy mask Final Airway Type: Endotracheal airway Final Endotracheal Airway: ETT Cuffed: Yes Technique Used: Direct laryngoscopy Devices/Methods Used in Placement: Int ubating stylet Insertion Site: Oral Blade Type: Ceballos Laryngoscope Blade/Videolaryngoscope Agustin de Size: 2 ETT Size (mm): 7.0 Cuff at minimum occlusion pressure: Yes Measured from: Lips ETT to Lips (cm): 21 Placement Verified by: direct visualizat ion Laryngoscopic view: Grade I - full vie w of glottis Rapid Sequence Induction (RSI): No Modified RSI: No Number of Attempts at Approach: 1 Atraumatic intubation, teeth and lips i ntact, ETT secured via tape and connected to the OR vent. Patient tolerated intubation well. ECG Pre/Post Op (03/04/2020 6:29 AM CDT) Pathologist Sig nature Ventricular rate 61 [facility] Atrial rate 61 [facility] MT interval 180 [facility] QRSD interval 74 [facility] QT interval 418 [facility] QTC interval 420 [facility] P axis 1 83 [facility] QRS axis 1 0 [facility] T wave axis 45 [facility] EKG impression Normal sinus rhythm-Possible Inferior infarct , age undetermined- Abnormal ECG-In automated comparison with ECG of 11-JAN-2019 18:14,-Sinus rhythm has replaced Electronic atrial pacemaker-Electronically [facility] Signed By Jena Farrell MD ([id number]) on 03/04/2020 5:19:11 PM Specimen Narrative Performed At This result has an attachment that is no t available. Performing Organization Address [facility] Phon e Number [facility] MUSE [address] [place] [phone] Partial thromboplastin time, activated (03/01/2020 1:10 PM CDT) PTT 34.9 23.0 - 36.0 [facility] Comment: [facility] PTT therapeutic range for unfractionated heparin is 61.0-112.0 seconds which corresponds to Anti-Xa 0.3-0.7 U/ml. Specimen Blood Performing Organization Address [facility] Phon e Number [facility] DEPARTMENT OF PATHOLOGY AND [address] [place] [address] [phone] [address] Prothrombin time with INR (03/01/2020 1:10 PM CDT) Pathologist [facility] Prothrombin time 15.0 (H) 11.5 - 14.5 [facility] INR 1.2 [place] Comment: [facility] International Normalized Ratio (INR) is a [facility] monitoring tool for patients who are stable on oral anticoagulant therapy. An INR of 2.0-3.0 is suggested for deep vein thrombosis/pulmonary embolism. Specimen Blood Performing Organization Address [facility] Phon e Number [facility] DEPARTMENT OF PATHOLOGY AND [address] [place] [address] [phone] [address] COVID-19 qualitative PCR (03/01/2020 1:00 PM CDT) Pathologist [facility] Interpretation Negative results do not prec lude 2019-nCoV infection and should not be used as the sole basis for treatment or other patient management decisions. Negative results must be combined with clinical observations, patient history, and epidemiological [place] information. [facility] COVID-19 qualitative Not-Detected Not-Detecte [place] PCR result d [facility] COVID-19 qualitative See link below for [place] PCR PDF Lab [facility] ReportComment: Case HOSPITAL Number: [id number] Specimen Nasal swab Performing Organization Address City/State/ZIP Code Phon e Number [facility] DEPARTMENT OF PATHOLOGY AND [address] [place], [place] [phone] GENOMIC MEDICINE [facility] [address] [place] [address] [facility] after 05/10/2019 Insurance Payer Benefit Plan / Subscriber ID Effective Dates Phone Addre ss Type Group [employer] MEDICARE [employer] MEDICARE [id number] 2018-Present PPO PPO/PFFS/ERS MCR Advance Directives For more information, please contact: [phone] Type Date 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
--- OUTSIDE RECORDS SUMMARY | 2020-05-10 04:41 | XMS REPORT | Continuity of Care Document ---
:1935 Author Organization [facility] t Address [address] [place] [address] Dr. Najera [address] [place] [address] Care Team Providers Name Role Phone Shaina HOPE Primary Care Physician Randi HOPE, Gómez Attending Clinician Francisco Javier HOPE, Martha Attending Clinician RANDI Admitting Clinician Unavailable Payers Payer Name Policy Type Policy Effective Date Expiration Date Sour ce Number HUMANA [id number] 2018 [place] MEDICAREHUMANA 00:00:00 Hindu[employer] MEDICARE PPO/PFFS/ERS [id number] 2018 -PresentPPO Problems Condition Condition Condition Status Onset Resolution Last Treating Co mments Source Name Details Category Date Date Treatment Clinician Date Afib Afib Disease Active [facility] 10-03 [facility]i 00:00: st 00 Atrial Atrial Disease Active [place] fibrillati fibrillati Ri odi , , st chronic chronic Allergies, Adverse Reactions, Alerts This patient has no known allergies or adverse reactions. Social History Social Habit Start Date Stop Date Quantity Comments Source History [facility] Meth odist Alcohol Std Drinks History [facility] Meth odist Alcohol Binge Sex Assigned At [facility] ethodist Tobacco use and 2020-03-13 2020-03-13 Never used [facility] ethodist exposure 00:00:00 00:00:00 Alcohol intake 2020-03-13 2020-03-13 Current [facility] thodist 00:00:00 00:00:00 non-drinker of alcohol (finding) History [facility] 2018-10-03 2018-10-03 1 [place] Meth odist Alcohol Frequency 00:00:00 00:00:00 Smoking Status Start Date Stop Date Source Never smoker [facility] Marshais shana Medications Ordered Filled Start Stop Current Ordering Indication Dosage Frequency Signature Comments Components Source Medication Medication Date Date Medication? Clinician (SIG) Name Name sotaloL 2019-05 2020- No 80mg QD Take 1 Garza (BETAPACE) 0-07 11-06 tablet (80 Me thodi 80 MG 00:00: 23:59 mg total) st tablet 00 :00 by mouth daily for 30 days. amLODIPine 2019-05 2020- No 5mg Take 5 mg H ouhilaria (NORVASC) 5 0-06 10-06 by mouth Met hodi mg tablet 14:47: 00:[address] 01 :00 (take if sbp is higher than 150). atorvastati 2019-05 Yes 40mg QD Take 40 mg Garza n (LIPITOR) 0-06 by mouth Meth [place] 40 MG 14:46: daily. st tablet 58 vit 2019-05 Yes 1{tbl} Q.5D Take 1 Garza C/E/Zn/elyse 0-06 tablet by Met hodi r/lutein/ze 14:46: mouth 2 st axan 58 (two) (PRESERVISI times a ON AREDS-2 day. ORAL) loratadine 2019-05 Yes 10mg Q24H Take 10 mg [place] (CLARITIN) 0-06 by mouth Metho di 10 mg 14:46: daily as st tablet 58 needed for allergies. hypromellos 2019-05 Yes 1[drp] Q.5D Administer Garza e (SYSTANE 0-06 1-3 drops Meth [place] GEL OPHT) 14:46: to both st 58 eyes 2 (two) times a day. apixaban 2019-05 Yes 2.5mg Q.5D Take 2.5 [place] (ELIQUIS) 0-06 mg by Methodi 2.5 mg 14:46: mouth 2 st tablet 58 (two) times a day. Lactobac 2019-05 Yes 1{tbl} QD Take 1 [place] on no.41/Bifid 0-06 tablet by Met hodi obact no.7 14:46: mouth st (PROBIOTIC- 58 daily. 10 ORAL) IPRATROPIUM 2019-05 Yes 2{appli Q.5D 2 Melanie ston BROMIDE 0-06 cation} applicatio Met hodi NASL 14:46: n into st 58 each nostril 2 (two) times a day as needed (allergies ). metoprolol 2019-05- No 50mg QD Take 50 mg Garza succinate 0-05 10-05 by mouth Metho di XL 20:40: 00:[address] (TOPROL-XL) 32 :00 morning. 50 mg 24 hr tablet colchicine 2019-05 Yes .3mg Q.5D Take 0.5 Melanie ston 0.6 mg 0-05 tablets Methodi tablet 00:00: (0.[address] 00 total) by mouth 2 (two) times a day. sucralfate 2019-05- No 1g Q.25D Take 1 Melanie ston (Carafate) 0-05 11-04 tablet (1 Met hodi 1 gram 00:00: 23:59 g total) st tablet 00 :00 by mouth 4 (four) times a day for 30 days. pantoprazol 2019-05 No 40mg QD Take 1 Melanie ston e 0-05 11-04 tablet (40 Methodi (Protonix) 00:00: 23:59 mg total) s t 40 MG EC 00 :00 by mouth tablet daily for 30 days. metoprolol 2019-05 No 25mg QD Take 0.5 [place] succinate 0-05 11-04 tablets Method i XL 00:00: 23:59 ([address] (TOPROL-XL) 00 :00 total) by 50 mg 24 hr mouth tablet every morning for 30 days. sotaloL 2019-05- No 80mg Q.5D Take 1 Garza (sotalol 0-05 10-06 tablet (80 Meth [place] AF) 80 MG 00:00: 00:00 mg total) st tablet 00 :00 by mouth 2 (two) times a day for 30 days. dofetilide 2019-05- No 250ug Q.5D Take 250 [place] (TIKOSYN) 0-02 10-02 mcg by Methodi 250 MCG 16:17: 00:[address] capsule 21 :00 (two) times a day. Vital Signs Vital Name Observation Time Observation Value Comments Source Systolic blood 2020-03-05 11:45:16 116 mm[Hg] Blaze n Hinduism pressure Diastolic blood 2020-03-05 11:45:16 55 mm[Hg] Alicia rollins Hinduism pressure Heart rate 2020-03-05 11:45:16 93 /min Greg Larsonist Body temperature 2020-03-05 11:45:16 36.5 Camille Hous stephanie Hinduism Respiratory rate 2020-03-05 11:45:16 18 /min Hous stephanie Hinduism Oxygen saturation in 2020-03-05 11:45:16 91 /min Greg Larsonist Arterial blood by Pulse oximetry Body height 2020-03-04 06:34:00 152.4 cm Greg Pierre Body weight 2020-03-04 06:34:00 54.148 kg Greg Pierre BMI 2020-03-04 06:34:00 23.31 kg/m2 Greg Pierre Procedures Procedure Date / Time Performing Clinician Source Performed XR CHEST 2 VW 2020-03-22 15:45:08 Haseeb Bryan ethodist COMPREHENSIVE METABOLIC 2020-03-22 14:49:00 JethroHaseeb hsuish Cristine pj Pierre PANEL HC COMPLETE BLD COUNT 2020-03-22 14:49:00 JethroHaseeb hsu Melnaie Pierre W/AUTO DIFF B NATRIURETIC PEPTIDE 2020-03-22 14:49:00 JethroHaseeb hsu Melanie manrique Hinduism ESTIMATED GFR 2020-03-22 14:49:00 Haseeb Bryan ethodist ECG 12-LEAD 2020-03-05 09:57:29 Haseeb Bryan ethodist ECG 12-LEAD 2020-03-04 22:18:10 Haseeb Bryan ethodist BASIC METABOLIC PANEL 2020-03-04 18:35:00 Haseeb Bryan Melanie Pierre MAGNESIUM LEVEL 2020-03-04 18:35:00 Haseeb Bryan ethodist ESTIMATED GFR 2020-03-04 18:35:00 Haseeb Bryan ethodist ECG 12-LEAD 2020-03-04 13:05:50 Haseeb Bryan ethodist EP COMPLETE EP STUDY W 2020-03-04 12:54:40 Randi Haseeb Gómezlisa Pierre ABLATION PULMONARY VEIN ACTIVATED CLOTTING TIME 2020-03-04 12:34:00 Haseeb Bryan ACTIVATED CLOTTING TIME 2020-03-04 12:17:00 Haseeb Bryan ACTIVATED CLOTTING TIME 2020-03-04 11:35:00 Rami, Haseeb Gómez oliva Hinduism ACTIVATED CLOTTING TIME 2020-03-04 11:13:00 Rami, Haseeb Gómez oliva Hinduism ACTIVATED CLOTTING TIME 2020-03-04 10:04:00 Rami, Haseeb Gómez oliva Hinduism ACTIVATED CLOTTING TIME 2020-03-04 09:15:00 Rami, Haseeb Gómez oliva Hinduism ACTIVATED CLOTTING TIME 2020-03-04 09:06:00 Rami, Haseeb oliva Hinduism TYPE AND SCREEN 2020-03-04 09:00:00 Rami, Haseeb Joyce ethodist ACTIVATED CLOTTING TIME 2020-03-04 09:00:00 Rami, Haseeb Pierre ARTERIAL LINE 2020-03-04 08:44:21 Regina Caraballo UT AN ELECTIVE 2020-03-04 08:42:23 Regina Caraballo ENDOTRACHEAL AIRWAY ECG PRE/POST OP 2020-03-04 06:29:48 RamHaseeb hsuodist COMPREHENSIVE METABOLIC 2020-03-01 13:10:00 Haseeb Bryan PANEL HC COMPLETE BLD COUNT 2020-03-01 13:10:00 Haseeb Bryan W/AUTO DIFF PROTHROMBIN TIME WITH INR 2020-03-01 13:10:00 Haseeb Bryan PARTIAL THROMBOPLASTIN 2020-03-01 13:10:00 Haseeb Bryan TIME (PTT) MAGNESIUM LEVEL 2020-03-01 13:10:00 RamHaseeb hsu ethodist ESTIMATED GFR 2020-03-01 13:10:00 Haseeb Bryan ethodist COVID-19 QUALITATIVE PCR 2020-03-01 13:00:00 Haseeb Bryan Plan of Care Planned Activity Planned Date Details Comments Source Future Scheduled 2019 INFLUENZA VACCINE Blaze ramírez Hinduism Test 00:00:00 [code = INFLUENZA VACCINE] Future Scheduled 1998 65+ PNEUMOCOCCAL Greg Larsonist Test 00:00:00 VACCINE (1 of 1 - PPSV23) [code = 65+ PNEUMOCOCCAL VACCINE (1 of 1 - PPSV23)] Future Scheduled 1983-12-31 SHINGLES VACCINES (#1) H pj Hinduism Test 00:00:00 [code = SHINGLES VACCINES (#1)] Encounters Start End Encounter Admission Attending Care Care Encounter Source Date/Time Date/Time Type Type Clinicians Facility Department ID 2020-03-22 2020-03-22 Outpatient HASEEB BRYAN [facility] [id number] [place] 00:00:00 00:00:[address] 2020-03-22 2020-03-22 Outpatient HASEEB BRYAN [facility] [id number] [place] 00:00:00 00:00:[address] 2020-03-04 2020-03-05 Outpatient HASEEB BRYAN [place] [address] [id number] [place] 00:00:00 00:00:[address] 2020-03-01 2020-03-01 Outpatient HASEEB BRYAN [facility] [id number] [place] 00:00:00 00:00:[address] Results Test Description Test Time Test Comments Results Result Comments Source Comprehensive metabolic panel 2020-03-22 15:53:19 Test Item Value Reference Range Interpretation Comme nts Sodium (test code = 2951-2) 143 135- 148 mEq/L Potassium (test code = 2823-3) 3.8 3.5- 5.0 mEq/L Chloride (test code = 2075-0) 99 98- 112 mEq/L CO2 (test code = 2028-9) 28 24- 31 mEq/L Anion gap (test code = 30439-8) 16@ANIO 7- 15 mEq/L H BUN (test code = 3094-0) 17 mg/dL 8-23 Creatinine (test code = 2160-0) 0.75 mg/dL 0.5-0.9 Glucose (test code = 2345-7) 102 mg/dL 65-99 H Calcium (test code = 28609-1) 8.7 mg/dL 8.8-10.2 L Protein (test code = 2885-2) 7.3 g/dL 6.3-8.3 - 4.6-7.0 g/dL1 week 4. 4-7.6 g/dL7 months-1y ear 5.1-7.3 g/d L1-2 years 5.6-7.5 g/dL>3 years 6.0 -8.0 g/nZ11-381 6.3-8.3 g/d L Albumin (test code = 1751-7) 3.4 g/dL 3.5-5 L A/G ratio (test code = 1759-0) 0.9 0.7-3.8 Alkaline phosphatase (test code = 92 U/L 35-104 6768-6) AST (test code = 1920-8) 21 U/L 10-35 ALT (test code = 1742-6) 14 U/L 5-50 Total bilirubin (test code = 0.5 mg/dL 0-1.2 1974-07) Lab Interpretation (test code = Abnormal 38820-3) Garza MethodistEstimated [id number] 15:53:19 Test Item Value Reference Range Interpretation Comments Estimated GFR (test 72 mL/min/1.73 m2 [facility] Units code = 5488) InterpretationG 1 >=90 Normal or highG2 60-89 Mildly iswvcaxzzP4p 45-59 Mildly to mode rately kcpfcleabE8z 30-44 Moderately to severely decreasedG4 15-29 Severely decre asedG5 <15 Kidn ey failureThe eGFR was calculated usin g the Chronic Kidney Disease Epidemiology Co llaboration (CKD-EPI) equat ion. Interpretation is based on recommendations of the National Kidney Foundation-Kidn ey Disease Outcomes Qualit y Initiative (NKF-KDOQI) pub lished in 2014. [place] MethodistXR Chest 2 [id number] 15:52:31Hm Interface, Radiology Results 03/22/2020 3:55 PM CDTEXAMINATION: XR CHEST 2 VWCLINICAL HISTORY:84 years Female R06.02 Shortness of breath, R06.02 OPCCOMPARISON: 01/11/2019IMPRESSION:1.Midline sternotomy wires. Left chest wall cardiac device with 2 leads which are intact. The heart size is mildly prominent, stable. There are calcifications in a tortuous aorta. The central vasculature is normal.2.The lungs are clear without consolidation or effusion.3.Degenerative changes in the spine.OPC-[id number] MethodistB natriuretic [id number] 15:50:34 Test Item Value Reference Range Interpretation Comments BNP (test code = 84339-9) 369 pg/mL 0-100 H Lab Interpretation (test code = Abnormal 25732-0) Greg MethodistCBC with platelet and [id number] 15:27:37 Test Item Value Reference Range Interpretation Comments WBC (test code = 48427-7) 6.00 4.50- 11.00 k/uL RBC (test code = 01379-7) 4.37 m/uL 4.2-5.5 HGB (test code = 718-7) 12.3 g/dL 12-16 HCT (test code = 4544-3) 38.5 % 37-47 MCV (test code = 787-2) 88.1 fL 82-100 MCH (test code = 785-6) 28.1 pg 27-34 MCHC (test code = 786-4) 31.9 g/dL 31-37 RDW - SD (test code = 44.8 fL 37-55 34213-1) MPV (test code = 07499-4) 10.0 fL 8.8-13.2 Platelet count (test code 249 150- 400 k/uL = 00205-8) Nucleated RBC (test code 0.00 /100 WBC = 35729-4) Neutrophils (test code = 53.9 % 39-69 39843-5) Lymphocytes (test code = 32.3 % 25-45 04290-6) Monocytes (test code = 11.0 % 0-10 H 00967-5) Eosinophils (test code = 2.3 % 0-5 78589-5) Basophils (test code = 0.3 % 0-1 88245-6) Immature granulocytes 0.2 % 0-1 "Immat ure (test code = 39517-7) granul ocytes" (promyelocytes, myelocytes, metamyelocytes) Lab Interpretation (test Abnormal code = 16573-5) Greg MethodistActivated clotting [id number] 12:30:55 Test Item Value Reference Range Interpretation Comments Activated clotting 149 96- 152 sec Meter ID: [id number] time (test code = ID: Ivory Tapia 5298) Greg MethodistElectrophysiology [id number] 14:28:09PRIMARY TRANSVERSE ABDOMINAL MUSCLE SURGEON:NARDA ArnoldOMPLICATIONS:None.ESTIMATED BLOOD LOSS:10 mLSPECIMEN REMOVED:None.ANESTHESIA:General.PROCEDURES PERFORMED:1. Atrial fibrillation ablation with pulmonary vein isolation.2. Extra pulmonary vein ablation with posterior wall isolation.3. Atrial flutter ablation separate from prior mechanism.4. PAC ablation separate from prior mechanism.5. Posterior wall and anterior wall ablation for substrate modification.6. Intracardiac echocardiogram.7. 3D mapping.8. Pharmacologic drug infusion.9. Periprocedural Pacemaker interrogation, reprogramming.10. Pharmacologic drug in fusion.ANESTHESIA:General.PREOPERATIVE DIAGNOSES:1. Recurrent atrial fibrillation/atrial flutter.2. History of persistent atrial fibrillation status post pulmonary veinablation.3. Sick sinus syndrome status post dual chamber pacemaker.4. Coronary artery disease.POSTOPERATIVE DIAGNOSES:1. Recurrent atrial fibrillation/atrial flutter.2. History of persistent atrial fibrillation status post pulmonary veinablation.3. Sick sinus syndrome status post dual chamber pacemaker.4. Coronary artery disease.HISTORY OF PRESENT ILLNESS:The patient is an 84-year-old female with the above medical history whowasreferred for EP study and ablation for recurrent drug refractory ordrug-intolerant atrial fibrillation. The patient had a prior history ofpulmonary vein ablation with pulmonary vein isolation and posterior wallisolation.PROCEDURE IN DETAIL:The patient was brought to the procedure room in a fastingstate. Informedconsent was obtained. The patient was prepped and draped in the usual sterilefashion. General anesthesia was used for the procedure. Ultrasound-guidedvascular access obtained in the right femoral vein. Catheter was advancedincluding an intracardiac echocardiogram, which was used toexclude left atrialappendage clot and monitor catheter positioning, monitor pericardial effusionand recreate 3D geometry and assist with transseptal puncture. Heparin boluswas given immediately after vascular access. Transseptal puncture wasperformed. This was somewhat challenging due to the atrialleads and thebulging left atrial septum. After successful transseptal puncture, a voltagemap and activation map was done at baseline. Baseline rhythm was sinus/atrialpaced rhythm. The left veins were isolated. The right pulmonary veins hadreconnections along the antral aspect, along with posteriorwall evident with apacing capture. The patient also had a significant amount of LA scarring alongthe anterior wall. We proceeded with initial ablation along the LA roof andtargeted posterior wall ablation and then extended our lesion set to the mitralannulus to incorporate the area of scarring. Block along the anterior septalmitral line was evident. Pacing on either side of line of the blockdemonstrating change in CS activation. We then did program atrial stimulation,was up to triple atrial stimuli with no dysrhythmias; started the patient onisoproterenol. We were then able to provoke an atrial tachycardia thatdegenerated into atrial fibrillation. Mapping was done in the left atrium. Nointeresting areas of long fractionated signals were evident in the left atrium. As we came to map on to the right atrium, the patient's atrial fibrillationterminated and then she would go into recurrent atr ial flutter. This was mappedand was consistent with a counterclockwise atrial flutter. By activationmapping, an entrainment was done from the lateral RA wall and the proximal CS osto confirm good return cycle lengths. We then proceeded to ablate along the CTIwith cycle lengths slowing and termination of tachycardia. Bidirectional CTIblock was achieved and confirmed with differential site mapping and differentialsite pacing. We then went back to the left atrium to map a PAC, which thenoriginatedalong the LA ridge anterior to the left inferior pulmonary vein. Ablation was targeted along this area with reduction in PVCs. We thenreconfirmed that the posterior wall was still isolated with high output atrialpacing. At this point, the procedure was completed. All catheter and sheathswere removed. No evidence of pericardial effusion at the end of the case.FINDINGS:Mean LA pressure was 14 to 16. AV Wenckebach achieved at 309 milliseconds. AVnode ERP and atrial ERP was [address] of 600 milliseconds. Bidirectional CTI block achieved with conduction across line block of 150 khm312 milliseconds confirmed under site mapping. Intraseptal mitral line blockwas also evident.Pacing on either side of line, CS activation with change. Posterior wall was isolated with an entrance and exit block achieved. Leftatrial PAC was targeted along the LA ridge. Catheter ablation was performedusing arnold between 35 to 45 garcia with contact force between 7 and 35 grams. Duration of lesions were limited to 6 to 10 seconds along the posterior wall. IIn the remainder of the atrium, duration was up to 8 to 15 seconds with powersbetween 35 to 45 garcia. A second transseptal sheath had been placed for directleft atrial imaging to monitor for tissue echogenicity and contact throughoutthe case.CONCLUSION:1. Baseline isolation of the pulmonary veins except for the antral aspect ofthe right inferior pulmonary vein. These were re-isolated with ablation alongthe LA roof and the posterior wall.2. Re-isolation isolation of the posterior wall with entrance and exit blockachieved with targeted posterior wall ablation and LA roof ablation.3. Anteroseptal mitral line performed for a large area of anterior wallScarring with line of block evident with pacing on either side of the line.Pacinglateralaspect of the line. CS activation was distal to proximal and pacing just onMedial aspect of the line, CS activation would change from proximal to distal. 4. A PAC was also mapped in the left atrium along the LA ridge anterior to the leftinferior pulmonary vein 5. A CTI dependent atrial flutterwas provoked andeliminated during ablation with bidirectional CTI block achieved confirmed with differential site mapping and pacing with aconduction of the block 150 to 160 milliseconds. 6. No induced arrhythmias with aggressive triple atrial stimulation; as noted atrial fibrillation provoked withhigh-dose isoproterenol at 10 mcg per minute, which then terminated andorganized into an atrial flutter, which was then targeted along the CTI.RECOMMENDATIONS:The patient will complete the appropriate postprocedure wound care and activityrestriction.[facility] 12 [id number] 21:25:04 Test Item Value Reference Range Interpretation Comments Ventricular rate (test 72 code = 253) Atrial rate (test code 72 = 255) UT interval (test code 184 = 266) QRSD interval (test 70 code = 260) QT interval (test code 420 = 264) QTC interval (test code 459 = 265) P axis 1 (test code = 77 267) QRS axis 1 (test code = -3 268) T wave axis (test code 47 = 270) EKG impression (test Electronic atrial code = 273) pacemaker-Cannot rule out Inferior infarct (cited on or before 04-MAR-2020)-Abnormal ECG-In automated comparison with ECG of 04-MAR-2020 22:18,-No significant change was found- Greg LarsonistBasic metabolic [id number] 19:36:59 Test Item Value Reference Range Interpretation Comments Sodium (test code = 2951-2) 141 135- 148 mEq/L Potassium (test code = 2823-3) 3.9 3.5- 5.0 mEq/L Chloride (test code = 2075-0) 100 98- 112 mEq/L CO2 (test code = 2028-9) 25 24- 31 mEq/L Anion gap (test code = 09315-9) 16@ANIO 7- 15 mEq/L H BUN (test code = 3094-0) 17 mg/dL 8-23 Creatinine (test code = 2160-0) 0.72 mg/dL 0.5-0.9 Glucose (test code = 2345-7) 143 mg/dL 65-99 H Calcium (test code = 06377-9) 8.8 mg/dL 8.8-10.2 Lab Interpretation (test code = Abnormal 51888-5) Greg PierreMagnesium [id number] 19:36:59 Test Item Value Reference Range Interpretation Comments Magnesium (test code = 65489-8) 1.4 mg/dL 1.6-2.4 L Lab Interpretation (test code = Abnormal 75565-4) Greg ReynagaG Pre/Post [id number] 17:19:14 Test Item Value Reference Range Interpretation Comments Ventricular rate (test 61 code = 253) Atrial rate (test code 61 = 255) UT interval (test code 180 = 266) QRSD interval (test 74 code = 260) QT interval (test code 418 = 264) QTC interval (test code 420 = 265) P axis 1 (test code = 83 267) QRS axis 1 (test code = 0 268) T wave axis (test code 45 = 270) EKG impression (test Normal sinus code = 273) rhythm-Possible Inferior infarct , age undetermined-Abnormal ECG-In automated comparison with ECG of 11-JAN-2019 18:14,-Sinus rhythm has replaced Electronic atrial pacemaker-Electronical ly Signed By Jena Farrell MD ([id number]) on 03/04/2020 5:19:11 PM Greg PierreType and [id number] 09:58:00 Test Item Value Reference Range Interpretation Comments ABO grouping (test code = 883-9) O Rh type (test code = 77565-8) POS Antibody screen (gel) (test code = NEG 890-4) Garza MethodistArterial [id number] 08:44:21Regina Caraballo CRNA 03/04/2020 8:45 AMArterial linePerformed by: Regina Caraballo C RNAAuthorized by: Mary Mcintyre MD Patient Location: ORStart Time: 03/04/2020 8:25AMEnd Time: 03/04/2020 8:30 AMStaff: Anesthesiologist: Mary Mcintyre MD Performed by: AnesthesiologistPre-procedure: patient identified, IV checked, site and side verified, risks and benefits discussed, procedure verified, surgical consent complete, patient position confirmed, monitors and equipment checked, pre-op evaluation complete and timeout performed prior to procedure MSBT: antiseptic used, all elements of maximal sterile barrier technique followed, hand hygiene performed, cap/gown used by other personnel and solutions labeled Indications: Indications: hemodynamic monitoring Anesthesia: Anesthesia: GeneralProcedure Details: Arterial Line placement: Placed post induction Line placement site: RadialLine placement side: Right Arterial line gauge: 20 GNumber of attempts: 1 Ultrasound guidance used: Yes Post-procedure: Post-procedure: Sterile dressingapplied Post procedure circulation, sensation, movement: Normal Patient tolerance: Patient tolerated the procedure well with no immediate complicationsNotes:Garza [id number] 08:42:23Regina Caraballo CRNA 03/04/2020 8:45 AMAirway Date/Time: 03/04/2020 8:23 AMPerformed by: Regina Caraballo CRNAAuthorized by: Mary Mcintyre MD Location: ORUrgency: ElectiveDifficult Airway: No Anesthesiologist: Mary Mcintyre MDResident/TOM/AA: Regina Caraballo CRNAPerformed by: resident/EXCHANGE TELLER/AAPreoxygenated with 100% O2: Yes C-spine Precautions Maintained Throughout: Yes Mask Ventilation: Easy maskFinal Airway Type: Endotracheal airwayFinal Endotracheal Airway: ETTCuffed: Yes Technique Used: Direct laryngoscopyDevices/Methods Used in Placement: Intubating styletInsertion Site: OralBlade Type: MillerLaryngoscope Blade/Videolary ngoscope Blade Size: 2ETT Size (mm): 7.0Cuff at minimum occlusion pressure: Yes Measured from: LipsETT to Lips (cm): 21Placement Verified by: direct visualization Laryngoscopic view: Grade I - full view of glottisRapid Sequence Induction (RSI): No Modified RSI: No Number of Attempts at Approach: 1 Atraumatic intubation, teeth and lips intact, ETT secured via tape and connected to the OR vent. Patient tolerated intubation well.Greg PierreCOVID-19 qualitative [id number] 19:54:15 Test Item Value Reference Range Interpretation Comments Interpretation (test Negative results do code = 2246152) not preclude 2019-nCoV infection and should not be used as the sole basis for treatment or other patient management decisions. Negative results must be combined with clinical observations, patient history, and epidemiological information. COVID-19 qualitative Not-Detected Not-Detected PCR result (test code = 10640-9) COVID-19 qualitative See link below for C ase Number: PCR (test code = PDF Lab Report [id number]) Greg PierrePartial thromboplastin time, [id number] 14:47:28 Test Item Value Reference Range Interpretation Comments PTT (test code = 34.9 23.0- 36.0 [place] [address]-0) unfractionated heparin is61.0-112.0 se conds which corresponds to Anti-Xa0.3-0.7 U/ml. Greg PierreProthrombin time with [id number] 14:46:44 Test Item Value Reference Range Interpretation Comments Prothrombin time (test 15.0 11.5- 14.5 sec H code = 5902-2) INR (test code = 1.2 The Interna tional 31113-9) Normalized Rati o (INR) is a therapeuti c monitoring tool for patients who ar e stable on oral anticoagulant t herapy. An INR of 2.0-3 .0 is suggested for d eep vein thrombosis/pulm onary embolism. Lab Interpretation Abnormal (test code = 15144-8) Greg Pierre
[2020-05-10] MEDS ORDERED: FUROSEMIDE 40 MG/4 ML VIAL ONE (05:15)
[2020-05-10] MEDS ORDERED: NITROGLYCERIN 1 GM PKT TD ONE (05:15)
[2020-05-10 05:36] LABS: Absolute Lymphocytes (CBC) 0.9 K/uL (0.7-4.9); Basophils % 0.5 % (0-1.3); Hematocrit 37.2 % (36.0-45.0); Lymphocytes % 10.4 % (15.3-44.8); MPV 8.4 fL (7.6-11.3); RBC Red Blood Cell Count 4.26 M/uL (3.86-4.86)
[2020-05-10 05:37] LABS: Protime INR 1.36
[2020-05-10 05:48] LABS: Albumin 3.1 g/dL (3.4-5.0); Bilirubin Direct 0.2 mg/dL (0-0.2); Bilirubin Total 0.8 mg/dL (0.2-1.0); Troponin (Emerg Dept Use Only) 0.04 ng/mL (0.0-0.045)
--- NOTE | 2020-05-10 05:54 | EDPHYS ---
Physician Documentation [facility] Name: Svetlana Patel Age: 84 yrs Sex: Female : 1935 Arrival Date: 05/10/2020 Time: 04:40 Bed 6 Private MD: ED Physician Alec Hodge HPI: 05/10 04:51 This 84 yrs old Female presents to ER via Unassigned with complaints of rn Breathing Difficulty. 04:51 The patient has shortness of breath at rest, with light activity. rn 04:51 Onset: The symptoms/episode began/occurred 5 day(s) ago. Duration: The symptoms are rn intermittent. The patient's shortness of breath is aggravated by supine position, is alleviated by elevating head, rest, sitting up. Associated signs and symptoms: Pertinent positives: productive cough, Pertinent negatives: fever, hemoptysis. Severity of symptoms: At their worst the symptoms were moderate in the emergency department the symptoms are unchanged. The patient has experienced similar episodes in the past. The patient has not recently seen a physician. Reports a few days of sob, worse with exertion and laying flat, monitors her temperature closely and has been isolating, states "does not have COVID". Reports increased swelling of legs, not able to wear her bra or clothes due to fitting too tight lately. Takes lasix 20mg daily. No chest pain. . Historical: - Allergies: 04:40 Amiodarone; jb4 04:40 Multaq; jb4 - Home Meds: 04:40 all day allergy 1 a day [Active]; areds 2 2 a day [Active]; atorvastatin 40 mg Oral tab jb4 1 tab once daily [Active]; cetirizine 10 mg Oral tab 1 tab once daily [Active]; dofetilide 250 mcg BID Oral [Active]; Eliquis 2.5 mg Oral tab 1 tab 2 times per day [Active]; furosemide 20 mg Oral tab 1 tab 2 times per day [Active]; magnesium oxide 400 mg Oral cap daily [Active]; metoprolol tartrate 25 mg Oral tab 1 tab once daily [Active]; pantoprazole 40 mg Oral TbEC 1 tab once daily [Active]; potassium chloride 20 mEq Oral TbER 1 tab once daily [Active]; preservision eye vitamin [Active]; sotalol 80 mg Oral tab 1 tab 2 times per day [Active]; - PMHx: 04:40 Atrial Fib; Hyperlipidemia; Hypertension; CHF; Pacemaker; jb4 - PSHx: 04:40 triple heart bypass; herniated disc; ablation x2; jb4 - Immunization history:: Adult Immunizations up to date. - Social history:: Smoking status: Patient denies any tobacco usage or history of. Patient/guardian denies using alcohol, street drugs. - Family history:: not pertinent. - Hospitalizations: : No recent hospitalization is reported. ROS: 04:51 Constitutional: Negative for fever, chills, and weight loss, Eyes: Negative for injury, rn pain, redness, and discharge, Neck: Negative for injury, pain, and swelling, Cardiovascular: Negative for chest pain, palpitations Respiratory: Negative for wheezing, and pleuritic chest pain, Abdomen/GI: Negative for abdominal pain, nausea, vomiting, diarrhea, and constipation, Back: Negative for injury and pain, MS/Extremity: Negative for injury and deformity, Skin: Negative for injury, rash, and discoloration, Neuro: Negative for headache, weakness, numbness, tingling, and seizure. Exam: 04:51 Constitutional: This is a well developed, well nourished patient who is awake, alert, rn + tachypnea Head/Face: Normocephalic, atraumatic. ENT: dry MM, no stridor Neck: + JVD Cardiovascular: Regular rate. No pulse deficits. Respiratory: + tachypnea, diminished at bases Abdomen/GI: soft, non-tender Skin: Warm, dry MS/ Extremity: Pulses equal, no cyanosis. + bilateral lower ext edema Neuro: Awake and alert, GCS 15 05:22 ECG was reviewed by the Attending Physician. rn Vital Signs: 04:40 BP 189 / 83; Pulse 72; Resp 16; Temp 98.1(O); Pulse Ox 88% on R/A; Weight 54.43 kg (R); jb4 Height 5 ft. 0 in. (152.40 cm) (R); Pain 0/10; 05:30 BP 174 / 75; Pulse 70; Resp 18; Pulse Ox 100% on 3 lpm NC; jb4 08:00 BP 158 / 65; Pulse 73; Resp 21; Pulse Ox 99% on 3 lpm NC; hb 08:38 BP 159 / 69; Pulse 82; Resp 21; Pulse Ox 98% ; sv 04:40 Body Mass Index 23.44 (54.43 kg, 152.40 cm) jb4 04:[address] on 3 L NC jb4 MDM: 04:44 Patient medically screened. rn 05:50 Differential diagnosis: CHF exacerbation, Myocardial Infarction pneumonia, Pneumothorax rn pulmonary edema. Data reviewed: vital signs, nurses notes, lab test result(s), EKG, radiologic studies, plain films, and as a result, I will admit patient. Counseling: I had a detailed discussion with the patient and/or guardian regarding: the historical points, exam findings, and any diagnostic results supporting the discharge/admit diagnosis, lab results, radiology results, the need for further work-up and treatment in the hospital. Response to treatment: the patient's symptoms have mildly improved after treatment, and as a result, I will admit patient. Admission orders: after a detailed discussion of the patient's condition and case, the admit orders are written by me. 05/10 04:50 Order name: Basic Metabolic Panel; Complete Time: 05:49 05/10 04:50 Order name: CBC with Diff; Complete Time: 05:42 05/10 04:50 Order name: LFT's; Complete Time: 05:49 05/10 04:50 Order name: NT PRO-BNP; Complete Time: 05:49 05/10 04:50 Order name: PT-INR; Complete Time: 05:42 05/10 04:50 Order name: Troponin (emerg Dept Use Only); Complete Time: 05:49 05/10 04:50 Order name: XRAY Chest (1 view) 05/10 04:50 Order name: EKG; Complete Time: 04:51 rn 05/10 06:52 Order name: CONS Physician Consult [facility] 05/10 07:01 Order name: COVID-19 05/10 08:28 Order name: CORONAVIRUS [facility] 05/10 09:09 Order name: SARS-COV-2 RT PCR [facility] 05/10 04:50 Order name: Cardiac monitoring; Complete Time: 05:25 05/10 04:50 Order name: EKG - Nurse/Tech; Complete Time: 04:58 rn 05/10 04:50 Order name: IV Saline Lock; Complete Time: 05:24 rn 05/10 04:50 Order name: Labs collected and sent; Complete Time: 05: rn 05/10 04:50 Order name: O2 Per Protocol; Complete Time: rn 05/10 04:50 Order name: O2 Sat Monitoring; Complete Time: rn EC:22 Rate is 75 beats/min. Rhythm is regular. QRS [place] is Normal. UT interval is normal. QRS rn interval is normal. QT interval is normal. No Q waves. T waves are Normal. No ST changes noted. Clinical impression: Paced rhythm. Interpreted by me. Reviewed by me. Administered Medications: 05:31 Drug: Lasix 40 mg Route: IVP; Site: left hand; rr5 05:35 Drug: Nitro-Bid Ointment 2 % 0.5 inches Route: Transdermal; Site: anterior chest wall; jb4 Disposition: 05/10/20 05:53 Hospitalization ordered by Josh Hodge for Inpatient Admission. Preliminary diagnosis are Unspecified combined systolic (congestive) and diastolic (congestive) heart failure, Hypoxemia, Pulmonary edema. - Bed requested for Telemetry/MedSurg (Inpatient). - Status is Inpatient Admission. hb - Condition is Stable. - Problem is new. - Symptoms have improved. Signatures: Dispatcher [employer] EDMS Alec Hodge MD MD rn Martinez, Eric em1 Ann Hester RN RN Hans Moon RN RN jb4 Josh Joseph, VIVIENNE RN rr5 Corrections: (The following items were deleted from the chart) 06:20 05:53 Hospitalization Ordered by Salvador Davis DO for Inpatient Admission. Preliminary rn diagnosis is Unspecified combined systolic (congestive) and diastolic (congestive) heart failure; Hypoxemia; Pulmonary edema. Bed requested for Telemetry/MedSurg (Inpatient). Status is Inpatient Admission. Condition is Stable. Problem is new. Symptoms have improved. rn 07:49 06:20 05/10/2020 05:53 Hospitalization Ordered by Josh Hodge MD for Inpatient em1 Admission. Preliminary diagnosis is Unspecified combined systolic (congestive) and diastolic (congestive) heart failure; Hypoxemia; Pulmonary edema. Bed requested for Telemetry/MedSurg (Inpatient). Status is Inpatient Admission. Condition is Stable. Problem is new. Symptoms have improved. rn 09:32 07:49 05/10/2020 05:53 Hospitalization Ordered by Josh Hodge MD for Inpatient hb Admission. Preliminary diagnosis is Unspecified combined systolic (congestive) and diastolic (congestive) heart failure; Hypoxemia; Pulmonary edema. Bed requested for Telemetry/MedSurg (Inpatient). Status is Inpatient Admission. Condition is Stable. Problem is new. Symptoms have improved. em1
--- NOTE | 2020-05-10 05:54 | ER ---
Nurse's Notes [facility] Name: Svetlana Patel Age: 84 yrs Sex: Female : 1935 Arrival Date: 05/10/2020 Time: 04:40 Bed 6 Private MD: Diagnosis: Unspecified combined systolic (congestive) and diastolic (congestive) heart failure;Hypoxemia;Pulmonary edema Presentation: 05/10 04:40 Chief complaint: EMS states: Pt reports being short of breath. Reports having this jb4 issue on and off for the past 2 weeks. Tonight she reports that she just couldn't get it to go away. Coronavirus screen: Client denies travel out of the [place] in the last 14 days. Client presents with at least one sign or symptom that may indicate coronavirus-19. Standard/surgical mask placed on the client. Provider contacted for isolation considerations. Ebola Screen: Patient negative for fever greater than or equal to 101.5 degrees Fahrenheit, and additional compatible Ebola Virus Disease symptoms. Initial Sepsis Screen: Does the patient meet any 2 criteria? No. Patient's initial sepsis screen is negative. Does the patient have a suspected source of infection? No. Patient's initial sepsis screen is negative. Risk Assessment: Do you want to hurt yourself or someone else? Patient reports no desire to harm self or others. Onset of symptoms was May 10, 2020. Transition of care: patient was not received from another setting of care. 04:40 Method Of Arrival: EMS: [facility] jb4 04:40 Acuity: LUCIEN 3 jb4 Historical: - Allergies: 04:40 Amiodarone; jb4 04:40 Multaq; jb4 - Home Meds: 04:40 all day allergy 1 a day [Active]; areds 2 2 a day [Active]; atorvastatin 40 mg Oral tab jb4 1 tab once daily [Active]; cetirizine 10 mg Oral tab 1 tab once daily [Active]; dofetilide 250 mcg BID Oral [Active]; Eliquis 2.5 mg Oral tab 1 tab 2 times per day [Active]; furosemide 20 mg Oral tab 1 tab 2 times per day [Active]; magnesium oxide 400 mg Oral cap daily [Active]; metoprolol tartrate 25 mg Oral tab 1 tab once daily [Active]; pantoprazole 40 mg Oral TbEC 1 tab once daily [Active]; potassium chloride 20 mEq Oral TbER 1 tab once daily [Active]; preservision eye vitamin [Active]; sotalol 80 mg Oral tab 1 tab 2 times per day [Active]; - PMHx: 04:40 Atrial Fib; Hyperlipidemia; Hypertension; CHF; Pacemaker; jb4 - PSHx: 04:40 triple heart bypass; herniated disc; ablation x2; jb4 - Immunization history:: Adult Immunizations up to date. - Social history:: Smoking status: Patient denies any tobacco usage or history of. Patient/guardian denies using alcohol, street drugs. - Family history:: not pertinent. - Hospitalizations: : No recent hospitalization is reported. Screenin:40 Abuse screen: Denies threats or abuse. Nutritional screening: No deficits noted. jb4 Tuberculosis screening: No symptoms or risk factors identified. Fall Risk None identified. Assessment: 04:40 General: Appears in no apparent distress. comfortable, Behavior is calm, cooperative, jb4 appropriate for age. Pain: Denies pain. Neuro: Level of Consciousness is awake, alert, obeys commands, Oriented to person, place, time, situation. Cardiovascular: Patient's skin is warm and dry. Rhythm is Respiratory: Airway is patent Respiratory effort is even, unlabored, Respiratory pattern is regular, symmetrical. GI: No signs and/or symptoms were reported involving the gastrointestinal system. : No signs and/or symptoms were reported regarding the genitourinary system. EENT: No signs and/or symptoms were reported regarding the EENT system. Derm: Skin is intact, Skin is pink, warm \T\ dry. Musculoskeletal: Circulation, motion, and sensation intact. Range of motion: intact in all extremities. 05:45 Reassessment: Patient appears in no apparent distress at this time. Patient and/or jb4 family updated on plan of care and expected duration. Pain level reassessed. Patient is alert, oriented x 3, equal unlabored respirations, skin warm/dry/pink. 07:02 Reassessment: Patient appears in no apparent distress at this time. Patient and/or hb family updated on plan of care and expected duration. Pain level reassessed. Patient is alert, oriented x 3, equal unlabored respirations, skin warm/dry/pink. 08:00 Reassessment: Patient appears in no apparent distress at this time. Patient and/or family updated on plan of care and expected duration. Pain level reassessed. Patient is alert, oriented x 3, equal unlabored respirations, skin warm/dry/pink. 08:12 Reassessment: Attempted to call report to floor, receiving nurse unavailable at this hb time. 09:06 Reassessment: Awaiting COVID results before sending up to floor as requested by Charge hb Nurse Fco PALAFOX. Vital Signs: 04:40 BP 189 / 83; Pulse 72; Resp 16; Temp 98.1(O); Pulse Ox 88% on R/A; Weight 54.43 kg (R); jb4 Height 5 ft. 0 in. (152.40 cm) (R); Pain 0/10; 05:30 BP 174 / 75; Pulse 70; Resp 18; Pulse Ox 100% on 3 lpm NC; jb4 08:00 BP 158 / 65; Pulse 73; Resp 21; Pulse Ox 99% on 3 lpm NC; hb 08:38 BP 159 / 69; Pulse 82; Resp 21; Pulse Ox 98% ; sv 04:40 Body Mass Index 23.44 (54.43 kg, 152.40 cm) jb4 04:[address] on 3 L NC jb4 ED Course: 04:40 Patient arrived in ED. cl3 04:40 Arm band placed on right wrist. jb4 04:40 Patient has correct armband on for positive identification. Bed in low position. Call jb4 light in reach. Side rails up X 1. Pulse ox on. NIBP on. 04:44 Alec Hodge MD is Attending Physician. rn 04:46 Hans Moon, VIVIENNE is Primary Nurse. jb4 04:52 Triage completed. jb4 05:05 EKG done, by ED staff, reviewed by Alec Hodge MD. rr5 05:30 Inserted saline lock: 22 gauge in left hand, using aseptic technique. rr5 05:46 XRAY Chest (1 view) In Process Unspecified. EDMS 05:52 Salvador Davis DO is Hospitalizing Provider. rn 06:20 Josh Hodge MD is Hospitalizing Provider. rn 08:45 No provider procedures requiring assistance completed. Patient admitted, IV remains in hb place. 09:02 CORONAVIRUS Sent. sv 09:02 COVID-19 Sent. sv Administered Medications: 05:31 Drug: Lasix 40 mg Route: IVP; Site: left hand; rr5 05:35 Drug: Nitro-Bid Ointment 2 % 0.5 inches Route: Transdermal; Site: anterior chest wall; jb4 Outcome: 05:53 Decision to Hospitalize by Provider. rn 08:45 Admitted to Med/surg accompanied by tech, via wheelchair, room 206, with oxygen, Report hb called to Fco PALAFOX 08:45 Condition: stable 08:45 Instructed on the need for admit, Demonstrated understanding of instructions. 09:32 Patient left the ED. hb Signatures: Dispatcher [employer] EDMS Sharon Suresh, RN VIVIENNE Alec Hodge MD MD rn Baxter, Heather, RN RN hb Bryson, James, RN RN jb4 Josh Joseph RN RN rr5 Flakita Crawford cl3 Corrections: (The following items were deleted from the chart) 04:58 04:40 BP 189 / 83; Pulse 72bpm; Resp 16bpm; Pulse Ox 88% RA; 54.43 kg Reported; Height jb4 5 ft. 0 in. Reported; BMI: 23.4; Pain 0/10; Pt place on 3 L NC; jb4 08:01 08:00 BP 158 / 65; Pulse 73bpm; Resp 15bpm; Pulse Ox 100% 3 lpm Nasal Cannula; hb hb
--- NOTE | 2020-05-10 07:02 | P.HP ---
Certification for Inpatient Patient admitted to: Inpatient With expected LOS: >2 Midnights Practitioner: I am a practitioner with admitting privileges, knowledge of patient current condition, hospital course, and medical plan of care. Services: Services provided to patient in accordance with Admission requirements found in Title 42 Section 412.3 of the Code of Federal Regulations Patient History Date of Service: 05/10/20 Reason for admission: CHF exacerbation, chest pressure History of Present Illness: 84-year-old female, PMH: Paroxysmal atrial fibrillation s/p ablation x2, hypertension, CHF s/p pacemaker placement who presents to the ED due to 1 week of progressively worsening shortness of breath, orthopnea, and swelling. She states over the past several days her clothes have been fitting too tight. She states she was started on Lasix several weeks ago, 20 mg p.o. daily. She also endorses some Difficultly of AFib over the past few weeks, and her sotalol was increased from 80 mg daily to 80 mg b.i.d. yesterday by her industrial custodian in [place]. She also endorses some chest pressure, located at her sternum over the past week as well, intermittent. In the ED, patient was noted to be edematous, hypoxic to 88% on room air, and a troponin of 0.04, BNP: 5,362. CXR: And cardiomegaly with interstitial pulmonary edema pattern Allergies amiodarone Adverse Reaction (Intermediate, Verified 08/21/18 10:35) syncope dronedarone [From Multaq] Adverse Reaction (Intermediate, Verified 08/21/18 10:35) syncope Home Medications: Vit C/E/Zn/Coppr/Lutein/Zeaxan [Preservision Areds 2 Softgel] 1 cap PO BID 07/08/15 Atorvastatin Calcium [Lipitor*] 40 mg PO BEDTIME #30 tab 08/22/15 Apixaban [Eliquis] 2.5 mg PO Q12H 07/19/16 Cetirizine HCl 10 mg PO DAILY 07/19/16 Furosemide [Lasix] 20 mg PO DAILY 05/10/20 Ipratropium [place] 30 ml NS DAILY 05/10/20 Lactobacillus Rhamnosus GG [Culturelle] 1 each PO DAILY 05/10/20 Metoprolol Succinate [Toprol Xl] 25 mg PO DAILY 05/10/20 Potassium Chloride [Klor-Con 10] 10 meq PO DAILY 05/10/20 Propylene Glycol/Peg 400 [Systane 0.3-0.4% Eye Drops] 1 drop OPTH TID 05/10/20 Sotalol HCl [Betapace] 80 mg PO BID 05/10/20 - Past Medical/Surgical History Diabetic: No -: HTN -: CVA -: TIA -: HYPERLIPIDEMIA -: AFIB -: SKIN CANCER -: Tonsillectomy -: Left eye cataract surgery -: TRIPLE BYPASS -: BACK SURGERY HERNIATED DISC - Family History Father -: Hypertension Mother -: Heart disease - Social History Smoking Status: Never smoker Alcohol use: No CD- Drugs: No Caffeine use: Yes Place of Residence: Home Review of Systems 10-point ROS is otherwise unremarkable Physical Examination - Physical Exam General: Alert, Mild distress HEENT: Sclerae nonicteric Respiratory: Diminished, Crackles/rales (at bases bilaterally), Other (on 3-4L NC) Cardiovascular: Edema (2+ bilateral lower extremities, with some edema up to abdomen) Gastrointestinal: Soft and benign, No tenderness Musculoskeletal: No tenderness Integumentary: No rashes, No significant lesion Neurological: Normal speech, Normal affect - Studies Laboratory Data (last 24 hrs) 05/10/20 05:15: PT 16.0 H, INR 1.36 05/10/20 05:15: WBC 9.0, Hgb 12.2, Hct 37.2, Plt Count 239 05/10/20 05:15: Sodium 141, Potassium 4.0, BUN 19 H, Creatinine 0.75, Glucose 104, Total Bilirubin 0.8, AST 20, ALT 31, Alkaline Phosphatase 88 Assessment and Plan - Advance Directives Does patient have a Living Will: Yes Does patient have a Durable POA for Healthcare: Yes Physician Review Additional Text: Chest Pressure acute hypoxia secondary to CHF Exacerbation h/o CHF (HFpEF) Afib s/p ablation x2 h/o CAD s/p CABG ~2014 HTN -initial troponin 0.04, EKG without ischemic changes, paced; trend trop -CXR with bilateral interstitial edema, received IV LAsix 40mg in ED (home dose is 20mg PO) -ordered for additional 20mg IV later today, received some in ED as well -will continue on IV Lasix 40mg BID tomorrow -cardiology consulted -currently on 3L NC -continue home meds for Afib -Last echocardiogram (2017) LV EF: 69%, mild MR and TR, left atrial enlargement. -will obtain updated echocardiogram-discussed with Cardiology Code: DNR VTE: on Eliquis at home, will give lovenox for now Dispo: anticipate dc home in next 24-48hrs pending improvement of symptoms Time Spent Managing Pts Care (In Minutes): 55
[2020-05-10] MEDS: METOPROLOL XL 25 MG TAB PO SCH (10:39)
[2020-05-10] MEDS: SOTALOL HCL 80 MG TAB PO SCH ×2 (10:39→20:30)
--- NOTE | 2020-05-10 11:07 | RAD REPORT ---
EXAM DESCRIPTION: RAD - Chest Single View - 05/10/2020 5:45 am EXAM DESCRIPTION: Chest Single View CLINICAL HISTORY: DYSPNEA COMPARISON: None. FINDINGS: Single frontal radiograph view of the chest. Cardiomediastinal silhouette: Atherosclerotic calcification of the thoracic aorta. Cardiomegaly. Left -sided multilead generator. Prior median sternotomy. Lungs: Pulmonary vascular prominence with cephalization. No pneumothorax or large effusion. Bones: No acute osseous abnormality. Upper abdomen: No abnormality identified. IMPRESSION: 1. Cardiomegaly with interstitial pulmonary edema pattern. Electronically signed by: Sammy Meredith 05/10/2020 5:56 AM STOCK SHAPER Due to temporary technical issues with the PACS/Fluency reporting system, reports are being signed by the in house radiologist without review as a courtesy to ensure prompt reporting. The interpreting r adiologist is fully responsible for the content of the report.
--- NOTE | 2020-05-10 11:13 | ECHO ---
HEIGHT: 5 ft 0 in WEIGHT: 120 lb 0 oz DATE OF STUDY: 05/10/[address]: Josh Hodge MD 2-DIMENSIONAL: YES M.MODE: YES DOPPLER: YES COLOR FLOW: YES TDS: NO PORTABLE: NO DEFINITY: NO BUBBLE STUDY: NO DIAGNOSIS: CONGESTIVE HEART FAILURE EXACERBATION, STATUS POST CABG, ATRIAL FIBRILLATION, ABLATIONS CARDIAC HISTORY: CATHERIZATION: NO SURGERY: YES PROSTHETIC VALVE: NO PACEMAKER: YES MEASUREMENTS (cm) DIASTOLIC (NORMALS) SYSTOLIC (NORMALS) IVSd 1.0 (0.6-1.2) LA Diam 3.4 (1.9-4.0) LVEF 60% LVIDd 3.5 (3.5-5.7) LVIDs 2.4 (2.0-3.5) %FS 31% LVPWd 1.1 (0.6-1.2) Ao Diam 2.2 (2.0-3.7) 2 DIMENSIONAL ASSESSMENT: RIGHT ATRIUM: NORMAL LEFT ATRIUM: ENLARGED RIGHT VENTRICLE: NORMAL LEFT VENTRICLE: NORMAL TRICUSPID VALVE: MITRAL VALVE: MIRTAL ANNULAR CALCIFICATION PULMONIC VALVE: AORTIC VALVE: PERICARDIAL EFFUSION: NONE AORTIC ROOT: NORMAL LEFT VENTRICULAR WALL MOTION: NORMAL DOPPLER/COLOR FLOW: SEE BELOW. COMMENTS: NORMAL LEFT VENTRICULAR EJECTION FRACTION 55-60% WITH NORMAL WALL MOTION. SEVERE DIASTOLIC DYSFUNCTION (RESTRICTIVE). SEVERE LEFT ATRIAL ENLARGEMENT. 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 RIGHT ATRIAL PRESSURE OF >20 mmHg. MODERATE TRICUSPID REGURGITATION. TECHNOLOGIST: Eliza GRIMM
[2020-05-10] MEDS ORDERED: FUROSEMIDE 20 MG/ 2ML VIAL IV ONE (12:00)
[2020-05-10 12:19] LABS: Urine Appearance CLEAR; Urine Bilirubin NEGATIVE (NEG); Urine Blood 1+ (NEG); Urine Color YELLOW; Urine Glucose NEGATIVE (NEG); Urine Protein 2+ (NEG); Urine Specific Gravity <=1.005 (1.005-1.030); Urine Urobilinogen 0.2 mg/dL (0.2-1.0); Urine pH 6.5 (5.0-7.0)
[2020-05-10 12:33] LABS: Urine Microscopic Reflex ORDER UMIC
[2020-05-10 12:55] LABS: Urine Bacteria <20 /HPF (<20)
[2020-05-10] MEDS: APIXABAN 2.5 MG TABLET PO SCH (18:18)
[2020-05-10] MEDS: ATORVASTATIN 40 MG TAB PO SCH (20:30)
[2020-05-11] MEDS: APIXABAN 2.5 MG TABLET PO SCH ×2 (05:08→17:04)
[2020-05-11 05:54] LABS: Basophils % 0.7 % (0-1.3); Hematocrit 36.4 % (36.0-45.0); Lymphocytes % 8.5 % (15.3-44.8); RBC Red Blood Cell Count 4.17 M/uL (3.86-4.86)
[2020-05-11 06:13] LABS: ALT/SGPT 21 U/L (12-78); AST/SGOT 18 U/L (15-37); Albumin 2.7 g/dL (3.4-5.0); Alkaline Phosphatase 77 U/L (45-117); BUN Blood Urea Nitrogen 17 mg/dL (7-18); Bicarbonate 39 mmol/L (21-32); Bilirubin Total 0.9 mg/dL (0.2-1.0); Glucose Level 105 mg/dL (74-106); Magnesium 1.8 mg/dL (1.8-2.4); Phosphorus 3.6 mg/dL (2.5-4.9); Potassium 3.5 mmol/L (3.5-5.1); Protein, Total 6.5 g/dL (6.4-8.2); Sodium Level 139 mmol/L (136-145)
[2020-05-11] MEDS: FUROSEMIDE 40 MG/4 ML VIAL IV SCH ×2 (08:46→17:03)
[2020-05-11] MEDS: SOTALOL HCL 80 MG TAB PO SCH ×2 (08:46→20:46)
[2020-05-11] MEDS: POTASSIUM CL SA 10 MEQ TAB PO SCH (08:46)
[2020-05-11] MEDS ORDERED: POTASSIUM CL SA 10 MEQ TAB PO ONE (09:00)
[2020-05-11] MEDS: Systane 0.3-0.4% Eye Drops OPTH SCH ×3 (09:00→21:00)
[2020-05-11] MEDS ORDERED: MAGNESIUM SULFATE 1 gm IVPB 1 GM/100 ML BAG IV ONE (09:00)
--- NOTE | 2020-05-11 10:21 | P.PN ---
Subjective Date of Service: 05/11/20 Chief Complaint: CHF exacerbation, chest pressure Subjective: Improving (Patient reports overall feeling about the same, has been urinating a lot Still with some shortness of breath, on 2 L nasal cannula Overnight/this morning had at least 2 short runs of AFib, pacemaker not capturing reports had chest tightness in the middle of the night that woke her up) Review of Systems 10-point ROS is otherwise unremarkable Physical Examination - Vital Signs Temperature: 97.6 F Blood Pressure: 135/62 Pulse: 76 Respirations: 16 Pulse Ox (%): 99 - Physical Exam General: Alert, In no apparent distress, Oriented x3 HEENT: Sclerae nonicteric Respiratory: Crackles/rales (Mild, bilaterally) Cardiovascular: Regular rate/rhythm, Edema (trace to 1+ bilateral lower extremities) Gastrointestinal: Soft and benign, No tenderness Musculoskeletal: No tenderness Integumentary: No tenderness/swelling Neurological: Normal speech, Normal affect Assessment & Plan Physician Review Additional Text: Chest Pressure acute hypoxia secondary to acute on chronic CHF (HFpEF) Exacerbation Afib s/p ablation x2 h/o CAD s/p CABG ~2014 HTN -initial troponin 0.04, peaked at 0.05, down to 0.04 -cardiology consulted - recommended diuresis and trend troponin -TTE (05/10): EF: 55-60%, Severe diastolic dysfunction (restrictive) severe LA enlargement, severe pulmonary TN. moderate TR -Last echocardiogram (2016) LV EF: 69%, mild MR and TR, left atrial enlargement. -continue home meds for Afib, had short episodes of afib when pacemaker not capturing -CXR with bilateral interstitial edema, still SOB and requiring O2, but edema and O2 requirment is improving -continue IV Lasix 40mg BID for now -renal function improved -will discuss further with cardiology given continued chest pain, echo, and pacemaker -may require another day of IV diuresis Code: DNR VTE: continue eliquis Dispo: anticipate dc home in next 24-48hrs Time Spent Managing Pts Care (In Minutes): 31
[2020-05-11] MEDS: METOPROLOL XL 25 MG TAB PO SCH (11:48)
[2020-05-11] MEDS: ATORVASTATIN 40 MG TAB PO SCH (20:46)
[2020-05-12] MEDS: APIXABAN 2.5 MG TABLET PO SCH ×2 (05:50→17:09)
[2020-05-12 06:56] LABS: BUN Blood Urea Nitrogen 16 mg/dL (7-18); Glucose Level 98 mg/dL (74-106); Magnesium 1.9 mg/dL (1.8-2.4); Potassium 3.8 mmol/L (3.5-5.1); Sodium Level 139 mmol/L (136-145)
[2020-05-12 06:58] LABS: Basophils % 0.7 % (0-1.3); Hematocrit 35.1 % (36.0-45.0); MPV 8.8 fL (7.6-11.3); RBC Red Blood Cell Count 3.98 M/uL (3.86-4.86)
[2020-05-12 06:59] LABS: Bicarbonate 41 mmol/L (21-32)
[2020-05-12] MEDS: Systane 0.3-0.4% Eye Drops OPTH SCH ×3 (09:00→21:00)
[2020-05-12] MEDS ORDERED: POTASSIUM CL SA 10 MEQ TAB PO ONE (09:00)
[2020-05-12] MEDS: POTASSIUM CL SA 10 MEQ TAB PO SCH (09:18)
[2020-05-12] MEDS: METOPROLOL XL 25 MG TAB PO SCH (09:19)
[2020-05-12] MEDS: SOTALOL HCL 80 MG TAB PO SCH ×2 (09:19→21:11)
--- NOTE | 2020-05-12 11:23 | RAD REPORT ---
EXAM DESCRIPTION: RAD - Chest Pa And Lat (2 Views) - 05/12/2020 10:39 am CLINICAL HISTORY: SOB, edema, CHF exacerbation COMPARISON: Portable May 10 TECHNIQUE: Frontal and lateral views of the chest were obtained. FINDINGS: The lungs are clear of a focal consolidation. Prominent interstitial pattern again noted. No significant change from comparison. Interstitial edema and infiltrate can be masked by the severi ty of chronic disease. Pacemaker remains in place. Sternotomy wires in place. Heart size is normal and central vasculature i s within normal limits. No pleural effusion or pneumothorax seen. No acute bony finding noted. No aortic abnormality. IMPRESSION: Chronic interstitial pattern similar to comparison. This potentially masks interstitial edema or infiltrate.
--- NOTE | 2020-05-12 16:03 | P.PN ---
Subjective Date of Service: 05/12/20 Chief Complaint: CHF exacerbation, chest pressure Subjective: Improving (Reports she feels a little bit better today, still with some shortness of breath, feels like she has not been urinating as much yesterday. Otherwise no acute events overnight) Review of Systems 10-point ROS is otherwise unremarkable Physical Examination - Vital Signs Temperature: 98.1 F Blood Pressure: 115/58 Pulse: 70 Respirations: 19 Pulse Ox (%): 99 - Physical Exam General: Alert, In no apparent distress HEENT: Sclerae nonicteric Respiratory: Diminished (On 2 L nasal cannula), Crackles/rales (Mild) Cardiovascular: No edema, Regular rate/rhythm Gastrointestinal: Soft and benign, No tenderness Musculoskeletal: No tenderness Integumentary: No rashes Neurological: Normal speech, Normal affect Assessment & Plan Physician Review Additional Text: Chest Pressure acute hypoxia secondary to acute on chronic CHF (HFpEF) Exacerbation Afib s/p ablation x2 h/o CAD s/p CABG ~2014 HTN -initial troponin 0.04, peaked at 0.05, down to 0.04 -cardiology consulted - recommended diuresis, nuclear stress test tomorrow -TTE (05/10): EF: 55-60%, Severe diastolic dysfunction (restrictive) severe LA enlargement, severe pulmonary TN. moderate TR -Last echocardiogram (2016) LV EF: 69%, mild MR and TR, left atrial enlargement. -continue home meds for Afib, had short episodes of afib when pacemaker not capturing -continues with bilateral interstitial edema on chest x-ray from today -metabolic alkalosis, likely due to Lasix usage/contraction. Switch to Diamox -renal function improved Code: DNR VTE: continue eliquis Dispo: Nuclear stress test tomorrow continuing to diurese Time Spent Managing Pts Care (In Minutes): 37
[2020-05-12] MEDS: ACETAZOLAMIDE 500 MG IV IV SCH (21:12)
[2020-05-12] MEDS: ATORVASTATIN 40 MG TAB PO SCH (21:12)
[2020-05-13 05:50] LABS: Potassium 4.2 mmol/L (3.5-5.1)
[2020-05-13] MEDS ORDERED: REGADENOSON 0.4 MG/5 ML SYR IV ONE (08:58)
[2020-05-13] MEDS: Systane 0.3-0.4% Eye Drops OPTH SCH ×3 (09:00→21:00)
[2020-05-13] MEDS: APIXABAN 2.5 MG TABLET PO SCH ×2 (09:00→21:29)
[2020-05-13] MEDS: METOPROLOL XL 25 MG TAB PO SCH (10:32)
[2020-05-13] MEDS: SOTALOL HCL 80 MG TAB PO SCH ×2 (10:32→21:29)
[2020-05-13] MEDS: ACETAZOLAMIDE 500 MG IV IV SCH ×2 (10:33→21:29)
[2020-05-13] MEDS: POTASSIUM CL SA 10 MEQ TAB PO SCH (10:33)
--- NOTE | 2020-05-13 10:40 | RAD REPORT ---
EXAM DESCRIPTION: NM - Rest Stress Cardiac Imaging - 05/13/2020 10:27 am CLINICAL HISTORY: Acute coronary syndrome COMPARISON: None. TECHNIQUE: The patient was administered approximately 10.4 mCi of Tc 99m Sestamibi prior to resting SPECT imaging of the heart. The patient was then administered approximately 30.8 mCi of Tc 99m Sestam ibi following exercise or pharmacologic stress. Multiplanar SPECT images were reviewed. FINDINGS: There is uniformity of radiotracer uptake involving the entire left ventricular myocardiu m on rest and stress images. The left ventricular ejection fraction equals 77% IMPRESSION: Negative for a myocardial perfusion defect
--- NOTE | 2020-05-13 15:11 | P.PN ---
Subjective Date of Service: 05/13/20 Chief Complaint: CHF exacerbation, chest pressure Subjective: No new changes (Reports feeling about the same, anxious for stress test today Continues with some shortness of breath, requiring oxygen supplementation) Review of Systems 10-point ROS is otherwise unremarkable Physical Examination - Vital Signs Temperature: 97.4 F Blood Pressure: 110/51 Pulse: 70 Respirations: 20 Pulse Ox (%): 99 - Physical Exam General: Alert, In no apparent distress, Oriented x3 HEENT: Sclerae nonicteric Respiratory: Crackles/rales (Mild bilaterally at bases) Cardiovascular: No edema, Regular rate/rhythm Gastrointestinal: Soft and benign Musculoskeletal: No tenderness Integumentary: No rashes, No significant lesion Neurological: Normal speech, Normal affect Assessment & Plan Physician Review Additional Text: Chest Pressure acute hypoxia secondary to acute on chronic CHF (HFpEF) Exacerbation Afib s/p ablation x2 h/o CAD s/p CABG ~2014 HTN -initial troponin 0.04, peaked at 0.05, down to 0.04 -cardiology consulted - recommended diuresis, nuclear stress test today -TTE (05/10): EF: 55-60%, Severe diastolic dysfunction (restrictive) severe LA enlargement, severe pulmonary TN. moderate TR -Last echocardiogram (2016) LV EF: 69%, mild MR and TR, left atrial enlargement. -continue home meds for Afib, had short episodes of afib when pacemaker not capturing, asymptomatic -continues with bilateral interstitial edema on chest x-ray yesterday and was metabolic alkalosis, likely due to Lasix usage -switch to Diamox on 05/12, discuss with cardiology. Will continue to diurese -monitor renal function Code: DNR VTE: continue eliquis Dispo: Possible Dc home tomorrow, pending further diuresis and improvement of her breathing May need to go home on oxygen Time Spent Managing Pts Care (In Minutes): 35
[2020-05-13] MEDS ORDERED: WATER FOR INJ,STERILE 10 ML IV PRN (21:11)
[2020-05-13] MEDS: ATORVASTATIN 40 MG TAB PO SCH (21:29)
[2020-05-13] MEDS ORDERED: WATER FOR INJ,STERILE 10 ML ONE (21:34)
[2020-05-14 05:45] LABS: Magnesium 2.2 mg/dL (1.8-2.4); Potassium 3.9 mmol/L (3.5-5.1)
--- NOTE | 2020-05-14 08:17 | TREADPHA ---
DX: CHEST PAIN Date of Study: 05/13/2020 Ht: 0' 5 " Wt: 118 lb 0 oz Consulting Physician: JOSE MEDICATIONS: DIAMOX, ELIQUIS, LIPITOR, TOPROL XL, BETAPACE HISTORY: HYPERTENSION, HYPERLIPIDEMIA, PACEMAKER, CABG, ABLATION PHYSICIAL EXAMINATION: RESTING B.P.: 100/59 RESTING H.R.: 70 RESTING EKG: ATRIAL PACED WITH PREMATURE VENTRICULAR COMPLEXES PROTOCOL: PHARMACOLOGIC EXERCISE TIME: 3:30 B.P. AT [place] STRESS: 88/50 IMPRESSION: LEXISCAN INJECTED. CARDIOLITE INJECTED (SEE NUCLEAR MEDICINE REPORT). NO CHEST PAIN. PREMATURE VENTRICULAR COMPLEXES NOTED THROUGHOUT. NO SUPRAVENTRICULAR TACHYCARDIA. NO ISCHEMIC CHANGE WITH LEXISCAN.
[2020-05-14] MEDS: APIXABAN 2.5 MG TABLET PO SCH ×2 (08:58→20:32)
[2020-05-14] MEDS: POTASSIUM CL SA 10 MEQ TAB PO SCH (08:58)
[2020-05-14] MEDS: SOTALOL HCL 80 MG TAB PO SCH ×2 (08:58→20:33)
[2020-05-14] MEDS: METOPROLOL XL 25 MG TAB PO SCH (08:59)
[2020-05-14] MEDS: ACETAZOLAMIDE 500 MG IV IV SCH ×2 (08:59→09:00)
[2020-05-14] MEDS: Systane 0.3-0.4% Eye Drops OPTH SCH ×3 (09:00→20:33)
[2020-05-14 15:53] LABS: Arterial Blood Carboxyhemoglob 1.5 % (0-1.5); Blood O2 Saturation 90.4 % (92-98.5)
--- NOTE | 2020-05-14 18:05 | P.PN ---
Subjective Date of Service: 05/14/20 Chief Complaint: CHF exacerbation, chest pressure Patient has no new complaint today. She needs assistance with ambulation. Physical Examination - Vital Signs Temperature: 98.3 F Blood Pressure: 124/70 Pulse: 71 Respirations: 18 Pulse Ox (%): 99 - Physical Exam General: Alert, In no apparent distress HEENT: Mucous membr. moist/pink, Sclerae nonicteric Neck: Supple, JVD not distended Respiratory: Clear to auscultation bilaterally, Normal air movement Cardiovascular: No edema, Regular rate/rhythm, Normal S1 S2 Gastrointestinal: Normal bowel sounds, Soft and benign, Non-distended Musculoskeletal: No swelling, No erythema Integumentary: No rashes Neurological: Normal speech, Normal strength at 5/5 x4 extr Assessment And Plan - Current Problems (Diagnosis) (1) Acute on chronic diastolic heart failure Current Visit: Yes Status: Acute (2) Metabolic alkalosis Current Visit: Yes Status: Acute (3) Acute respiratory failure with hypoxia and hypercapnia Current Visit: Yes Status: Acute (4) Impaired mobility Current Visit: Yes Status: Acute (5) Diabetes mellitus, type II Onset Date: 08/13/15 Current Visit: No Status: Acute (6) HTN (hypertension) Onset Date: 07/09/15 Current Visit: No Status: Acute (7) Atrial fibrillation Onset Date: 07/20/16 Current Visit: No Status: Acute - Plan Patient has clinically improved but blood works to demonstrate metabolic alkalosis. She has mild CO2 retention. Will continue Diamox for another day. Check BMP in the a.m. to follow metabolic acidosis. Patient was slightly hypoxic in the supine position. Her SaO2 propped up or in sitting position. Will continue diuresis for another day Possible discharge in the a.m. with home health. Continue sotalol, metoprolol and Eliquis for AFib. Physician Review Additional Text: Chest Pressure acute hypoxia secondary to acute on chronic CHF (HFpEF) Exacerbation Afib s/p ablation x2 h/o CAD s/p CABG ~2014 HTN -initial troponin 0.04, peaked at 0.05, down to 0.04 -cardiology consulted - recommended diuresis, nuclear stress test today -TTE (05/10): EF: 55-60%, Severe diastolic dysfunction (restrictive) severe LA enlargement, severe pulmonary TN. moderate TR -Last echocardiogram (2016) LV EF: 69%, mild MR and TR, left atrial enlargement. -continue home meds for Afib, had short episodes of afib when pacemaker not capturing, asymptomatic -continues with bilateral interstitial edema on chest x-ray yesterday and was metabolic alkalosis, likely due to Lasix usage -switch to Diamox on 05/12, discuss with cardiology. Will continue to diurese -monitor renal function Code: DNR VTE: continue eliquis Dispo: Possible Dc home tomorrow, pending further diuresis and improvement of her breathing May need to go home on oxygen
--- NOTE | 2020-05-14 18:08 | P.PN ---
Date of Service: 05/14/20 Discussed advanced directives with patient and her daughter. It appears she has been provided with document for DNR, directives to physician and medical power of civil attorney. She has yet to complete it. She wishes to be DNR. Time spent discussing advanced directive was about 17 min.
[2020-05-14] MEDS: acetaZOLAMIDE 250 MG TAB PO SCH (20:32)
[2020-05-14] MEDS: ATORVASTATIN 40 MG TAB PO SCH (20:33)
[2020-05-15 04:22] LABS: Absolute Lymphocytes (CBC) 1.1 K/uL (0.7-4.9); Hematocrit 32.7 % (36.0-45.0); Lymphocytes % 22.8 % (15.3-44.8); MPV 8.2 fL (7.6-11.3); RBC Red Blood Cell Count 3.72 M/uL (3.86-4.86)
[2020-05-15 04:31] LABS: Potassium 3.9 mmol/L (3.5-5.1)
[2020-05-15] MEDS ORDERED: POTASSIUM CL SA 10 MEQ TAB PO ONE ×2 (04:51→09:00)
[2020-05-15 05:22] LABS: Blood Morphology Comment NOT SEEN (NOT SEEN); Platelet Estimate ADEQ
[2020-05-15 06:26] VITALS: BMI 23.2
--- NOTE | 2020-05-15 07:59 | PN ---
Date of Progress Note: 05/14/2020 Ms. Patel has been followed for [id number] diastolic congestive heart failure, paroxysmal atri al fibrillation, status post ablation, CABG in 2015, hypertension, dyslipidemia, history of pacemaker . Patient is on Eliquis, metoprolol, Lipitor, potassium, sotalol, and Diamox. She is feeling much b colleen. She has had a negative Lexiscan yesterday. Not complaining of any chest pain, remains slight ly short of breath. I would continue her Diamox, but would also add Lasix to her home medication whe n she leaves. As far as I am concerned, she can go home today. We will follow up on her in the offi ce in the next 2 to 4 weeks. SHARRI/ELLEN Voice ID: [id number] Report ID: [id number]
[2020-05-15 08:20] VITALS: BP 123/59; TEMP 97.8
[2020-05-15 08:21] VITALS: O2SAT 97
[2020-05-15] MEDS: acetaZOLAMIDE 250 MG TAB PO SCH (08:56)
[2020-05-15] MEDS: APIXABAN 2.5 MG TABLET PO SCH (08:56)
[2020-05-15] MEDS: METOPROLOL XL 25 MG TAB PO SCH (08:56)
[2020-05-15] MEDS: SOTALOL HCL 80 MG TAB PO SCH (08:56)
--- NOTE | 2020-05-15 08:57 | P.DS ---
Admission Date: 05/11/20 Discharge Date: 05/15/20 Disposition: DC HOME/HOME HEALTH CARE Discharge Condition: FAIR Reason for Admission: CHF exacerbation, chest pressure - Problems (1) Acute on chronic diastolic heart failure Current Visit: Yes Status: Acute (2) Metabolic alkalosis Current Visit: Yes Status: Acute (3) Acute respiratory failure with hypoxia and hypercapnia Current Visit: Yes Status: Acute (4) Impaired mobility Current Visit: Yes Status: Acute (5) Diabetes mellitus, type II Onset Date: 08/13/15 Current Visit: No Status: Acute (6) HTN (hypertension) Onset Date: 07/09/15 Current Visit: No Status: Acute (7) Atrial fibrillation Onset Date: 07/20/16 Current Visit: No Status: Acute Brief History of Present Illness: 84-year-old woman with a history paroxysmal atrial fibrillation, chronic diastolic heart failure department with a complaint of progressive shortness of breath and body swelling of 1 week duration. Patient reports increasing lower extremity swelling. She was prescribed Lasix 1 week prior. She also had a sotalol dose increased for uncontrolled atrial fibrillation. Her chest x-ray in the ED demonstrated increased interstitial markings. She was hypoxic with oxygen saturation of 88% on room air and troponin was mildly elevated at 0.04. Patient was admitted for further management. Hospital Course: Patient admitted to the medical floor and treated for CHF exacerbation with IV lasix. Patient's shortness of breath gradually improved with treatment. She developed metabolic acidosis. Lasix was switched to Diamox. The metabolic alkalosis improved with the Diamox. Patient has clinically improved to baseline. Her arterial blood gas showed some degree of CO2 retention which could contribute to the elevated bicarb in the blood. He her home dose Lasix is resumed on discharge. She is also prescribed Diamox to take along with the Lasix. Vital Signs/Physical Exam: Temp Pulse Resp BP Pulse Ox 97.8 F 73 19 123/59 L 97 05/15/20 08:00 05/15/20 08:56 05/15/20 08:00 05/15/20 08:56 05/15/20 08:00 General: Alert, In no apparent distress HEENT: Mucous membr. moist/pink Neck: Supple, JVD not distended Respiratory: Clear to auscultation bilaterally, Normal air movement Cardiovascular: No edema, Normal S1 S2, Irregular heart rate/rhythm Gastrointestinal: Normal bowel sounds, Soft and benign, No tenderness Musculoskeletal: No swelling, No tenderness Integumentary: No rashes Neurological: Normal strength at 5/5 x4 extr Laboratory Data at Discharge: WBC 4.7 K/uL (4.3-10.9) D 05/15/20 03:39 Hgb 10.8 g/dL (12.0-15.0) L 05/15/20 03:39 Hct 32.7 % (36.0-45.0) L 05/15/20 03:39 Plt Count 243 K/uL (152-406) 05/15/20 03:39 PT 16.0 SECONDS (9.5-12.5) H 05/10/20 05:15 INR 1.36 05/10/20 05:15 Sodium 142 mmol/L (136-145) 05/15/20 03:39 Potassium 3.9 mmol/L (3.5-5.1) 05/15/20 03:39 BUN 22 mg/dL (7-18) H 05/15/20 03:39 Creatinine 0.77 mg/dL (0.55-1.3) 05/15/20 03:39 Glucose 96 mg/dL (74-106) 05/15/20 03:39 Phosphorus 3.6 mg/dL (2.5-4.9) 05/11/20 05:34 Magnesium 2.2 mg/dL (1.8-2.4) 05/14/20 05:10 Total Bilirubin 0.9 mg/dL (0.2-1.0) 05/11/20 05:34 AST 18 U/L (15-37) 05/11/20 05:34 ALT 21 U/L (12-78) 05/11/20 05:34 Alkaline Phosphatase 77 U/L (45-117) 05/11/20 05:34 Troponin I 0.04 ng/mL (0.0-0.045) 05/11/20 08:11 Home Medications: Vit C/E/Zn/Coppr/Lutein/Zeaxan [Preservision Areds 2 Softgel] 1 cap PO BID 07/08/15 Atorvastatin Calcium [Lipitor*] 40 mg PO BEDTIME #30 tab 08/22/15 Apixaban [Eliquis *] 2.5 mg PO Q12H 07/19/16 Cetirizine HCl 10 mg PO DAILY 07/19/16 Furosemide [Lasix*] 20 mg PO DAILY 05/10/20 Ipratropium [place] 30 ml NS DAILY 05/10/20 Lactobacillus Rhamnosus GG [Culturelle] 1 each PO DAILY 05/10/20 Metoprolol Succinate [Toprol Xl*] 25 mg PO DAILY 05/10/20 Potassium Chloride [Klor-Con 10] 10 meq PO DAILY 05/10/20 Propylene Glycol/Peg 400 [Systane 0.3-0.4% Eye Drops] 1 drop OPTH TID 05/10/20 Sotalol HCl [Betapace*] 80 mg PO BID 05/10/20 acetaZOLAMIDE [Diamox*] 250 mg PO BID #60 tab 05/15/20 New Medications: acetaZOLAMIDE [Diamox*] 250 mg PO BID #60 tab Diet: AHA Activity: Ad bernice Followup: NONE,NONE [Primary Care Provider] - 1-2 Weeks Ash Colon MD [ACTIVE - CAN ADMIT] - (within 2 to 4 weeks.) Time spent managing pt's care (in minutes): 42
[2020-05-15] MEDS: Systane 0.3-0.4% Eye Drops OPTH SCH (09:00)
== END 2020-05-15 10:52 | disposition home health service (06) | DRG 291 ==
LOC: ER 04:39 → INTOOBSV 06:54 → ERHOLD 06:54 → 2ND 08:43 → OBSVTOIN 05-11 13:33
PROVIDERS: ADMIT Hospitalist; ATTEND Internal Medicine
DX: I11.0 Hypertensive heart disease with heart failure (principal); J96.01 Acute respiratory failure with hypoxia; J96.02 Acute respiratory failure with hypercapnia; E87.3 Alkalosis; E87.2 Acidosis; I50.33 Acute on chronic diastolic (congestive) heart failure; E11.9 Type 2 diabetes mellitus without complications; I25.10 Atherosclerotic heart disease of native coronary artery without angina pectoris; I48.0 Paroxysmal atrial fibrillation; E78.5 Hyperlipidemia, unspecified; Z88.8 Allergy status to other drugs, medicaments and biological substances; Z79.01 Long term (current) use of anticoagulants; Z95.1 Presence of aortocoronary bypass graft; Z66 Do not resuscitate; Z79.899 Other long term (current) drug therapy; Z95.0 Presence of cardiac pacemaker; Z20.828 Contact with and (suspected) exposure to other viral communicable diseases
CPT/HCPCS: 36415; 71045; 71046; 78452; 80048; 80053; 80076; 81003; 81015; 82805; 83735; 83880; 84100; 84484; 85025; 85610; 93005; 93017; 93306; 94760; 96374; 97112; 97116; 97161; 97530; 99285; A9500; J1120; J1940; J2785; J3475; U0003